=== PATIENT | male | born 1975 | race Caucasian/White ===

== ENCOUNTER 2018-09-04 15:43 | Outpatient (CLI) | payer BC, SELFPAY ==
[2018-09-04 18:33] LABS: ALT 68 U/L (12-78); AST 23 U/L (15-37); Albumin 4.2 g/dL (3.4-5.0); Alkaline Phosphatase 65 U/L (46-116); Bilirubin, Total 0.4 mg/dL (0.2-1.0); Total Protein 7.3 g/dL (6.4-8.2)
[2018-09-07 15:49] LABS: Adrenocorticotropic Hormone, P 14 pg/mL
[2018-09-07 21:01] LABS: Tissue Transglutaminase Ab IgA <1.2 U/mL
[2018-09-09 13:06] LABS: IGF-1, LC/MS, S 206 ng/mL (44-275); Z-score 1.28 SD
== END 2018-09-04 16:03 ==
PROVIDERS: PCP Emergency Medicine; Visit Provider Internal Medicine Endocrinology, Diabetes & Metabolism
DX: E11.649 Type 2 diabetes mellitus with hypoglycemia without coma (principal)
CPT/HCPCS: 36415; 80076; 82533; 82024; 83516; 84305

== ENCOUNTER 2019-06-01 15:20 | Outpatient (CLI) | payer BC, MEDICAID, SELFPAY ==
--- NOTE | 2019-06-01 10:36 | DI.RAD_ITS ---
EXAM: XR FOOT RT COMPLETE INDICATION: PAIN RT FOOT, M79.671. COMPARISON: No exams were available for comparison TECHNIQUE: 2D digital imaging was performed. FINDINGS: No fracture or bony erosions are seen. Vascular calcifications are noted. No mass is visible. IMPRESSION: No acute abnormality.
== END 2019-06-01 15:40 ==
PROVIDERS: PCP Emergency Medicine; Visit Provider Podiatrist Foot & Ankle Surgery
DX: M79.671 Pain in right foot (principal)
CPT/HCPCS: 73630

== ENCOUNTER 2019-06-04 12:33 | Outpatient (REF) | payer BC, MEDICAID, SELFPAY | END 2019-06-04 12:53 | LOC: LBN 12:33 | PROVIDERS: PCP Emergency Medicine; Visit Provider Surgery | DX: L03.031 Cellulitis of right toe (principal); E10.622 Type 1 diabetes mellitus with other skin ulcer; L98.499 Non-pressure chronic ulcer of skin of other sites with unspecified severity | CPT/HCPCS: 87070; 87205 ==

== ENCOUNTER 2019-06-11 12:45 | Outpatient (CLI) | payer BC, MEDICAID, SELFPAY ==
[2019-06-11 13:03] LABS: Abs Immature Grans 0.01 k/cumm (0.0-0.09); Absolute Basophil Count 0.02 k/cumm (0.0-0.2); Absolute Eosinophil Count 0.14 k/cumm (0.0-0.7); Absolute Lymphocyte Count 1.68 k/cumm (1.2-3.4); Absolute Monocyte Count 0.42 k/cumm (0.11-0.7); Absolute Neutrophil Count 3.33 k/cumm (1.2-6.7); Basophils % 0.4; Eosinophils % 2.5; HCT 41.6 % (40.0-50.0); HGB 14.3 g/dL (13.5-17.5); Immature Grans % 0.2 %; Mean Corp. HGB Concentration 34.4 g/dL (32.0-36.0); Mean Corpuscular Hemoglobin 28.5 pg (27.0-33.0); Monocytes % 7.5; Neutrophils % 59.4; Platelet Count 180 x1000/uL (130-400); RBC 5.01 m/cumm (4.50-6.00); RBC Distribution Width 12.7 % (11.8-14.1)
[2019-06-11 14:04] LABS: ALT 63 U/L (16-63); AST 25 U/L (15-37); Albumin 4.3 g/dL (3.4-5.0); Alkaline Phosphatase 80 U/L (46-116); Anion Gap 8.4 mmol/L (3-11); BUN 26 mg/dL (7-18); Bilirubin, Total 0.4 mg/dL (0.2-1.0); C-Reactive Protein 0.15 mg/dL (0.0-0.3); CO2 28.6 mmol/L (21.0-32.0); Calcium 9.2 mg/dL (8.5-10.1); Chloride 103 mmol/L (98-107); Glucose 158 mg/dL (74-106); Potassium 4.3 mmol/L (3.5-5.1); Sodium 140 mmol/L (136-145); Total Protein 7.7 g/dL (6.4-8.2)
== END 2019-06-11 13:05 ==
PROVIDERS: PCP Emergency Medicine; Visit Provider Surgery
DX: E10.621 Type 1 diabetes mellitus with foot ulcer; E11.3393 Type 2 diabetes mellitus with moderate nonproliferative diabetic retinopathy without macular edema, bilateral; L97.519 Non-pressure chronic ulcer of other part of right foot with unspecified severity; S81.809A Unspecified open wound, unspecified lower leg, initial encounter; L03.115 Cellulitis of right lower limb
CPT/HCPCS: 36415; 80053; 85025; 85610; 86140

== ENCOUNTER 2019-06-15 07:12 | Outpatient (CLI) | payer BC, MEDICAID, SELFPAY ==
[2019-06-15] MEDS: Normal Saline Flush 10 ML SYR IVP (11:35)
[2019-06-15] MEDS: Gadoterate meglumine 20 ML VIAL 18 ML IVP (11:36)
--- NOTE | 2019-06-15 12:15 | DI.MRI_ITS ---
EXAM: MR LOWER EXTREMITY RT WO/W CLINICAL HISTORY: suspect osteomylitis in toes, FOOT ULCER L97.509, CELLULITIS L03.90. TECHNIQUE: Multiplanar multisequence MRI was performed. COMPARISON: XR FOOT RT COMPLETE from 06/01/2019 FINDINGS: MR examination of the foot was performed according to the usual protocol with additional pre and post contrast T1 fat sat imaging. The region imaged includes the forefoot and portions of the midfoot. There is a nonspecific fluid collection of the tissues on the plantar aspect of head of 5th metatarsa l. No other significant fluid collection seen. There is abnormal bony signal of the distal phalange s of the 2nd and 3rd toes. There also appears to be mild enhancement in the distal phalanges of the 2nd and 3rd toes. Otherwise the bones of the forefoot show normal signal and no evidence of enhancem ent. No ligamentous or tendinous abnormality seen. Please correlate clinically regarding region of suspected osteomyelitis. IMPRESSION: Findings raising the possibility of osteomyelitis of the distal phalanges of the 2nd and 3rd toes whi ch show abnormal signal in the marrow and some post contrast enhancement. No gross bony destruction seen. Otherwise the bones show normal signal and no evidence of enhancement in the forefoot region.
== END 2019-06-15 07:32 ==
PROVIDERS: PCP Emergency Medicine; Visit Provider Surgery
DX: E10.621 Type 1 diabetes mellitus with foot ulcer (principal); L97.519 Non-pressure chronic ulcer of other part of right foot with unspecified severity; L03.115 Cellulitis of right lower limb; M89.8X7 Other specified disorders of bone, ankle and foot
CPT/HCPCS: 73720

== ENCOUNTER 2019-08-02 11:25 | Outpatient (CLI) | payer BC, SELFPAY ==
[2019-08-02 12:28] LABS: Abs Immature Grans 0.02 k/cumm (0.0-0.09); Absolute Basophil Count 0.02 k/cumm (0.0-0.2); Absolute Eosinophil Count 0.14 k/cumm (0.0-0.7); Absolute Lymphocyte Count 1.64 k/cumm (1.2-3.4); Absolute Monocyte Count 0.48 k/cumm (0.11-0.7); Absolute Neutrophil Count 2.97 k/cumm (1.2-6.7); Basophils % 0.4; Eosinophils % 2.7; HCT 40.8 % (40.0-50.0); HGB 14.3 g/dL (13.5-17.5); Immature Grans % 0.4 %; Lymphocytes % 31.1; Mean Corpuscular Hemoglobin 28.9 pg (27.0-33.0); Mean Corpuscular Volume 82.4 fL (80-95); Mean Platelet Volume 9.6 fL (8.0-11.0); Monocytes % 9.1; Neutrophils % 56.3; Platelet Count 181 x1000/uL (130-400); RBC 4.95 m/cumm (4.50-6.00); White Blood Cell Count 5.27 k/cumm (4.4-10.8)
[2019-08-02 13:33] LABS: ESR 13 mm/hr (0-15)
[2019-08-02 13:36] LABS: C-Reactive Protein 0.19 mg/dL (0.0-0.3)
== END 2019-08-02 11:45 ==
PROVIDERS: PCP Emergency Medicine; Visit Provider Podiatrist Foot & Ankle Surgery
DX: L03.90 Cellulitis, unspecified (principal)
CPT/HCPCS: 36415; 80048; 80061; 85652; 82175; 82300; 82607; 83036; 83655; 83825; 84165; 84443; 85025; 86038; 86140; 86592

== ENCOUNTER 2020-07-07 03:01 | Outpatient (CLI) | payer OTHER, MEDICAID, SELFPAY ==
--- NOTE | 2020-07-07 06:42 | DI.MRI_ITS ---
EXAM: MR LOWER EXTREMITY RT WO/W CLINICAL HISTORY: hx osteomyalitis of the same toes,RT FOOT PAIN, DIABETES,M79.671. TECHNIQUE: Multiplanar multisequence MRI was performed. COMPARISON: CR XR FOOT RT COMPLETE from 06/01/2019 MR MR LOWER EXTREMITY RT WO/W from 06/15/2019 FINDINGS: The exam is interpreted without benefit of recent plain films. The patient has undergone amputation of the 2nd and 3rd toes. Exam is also limited by motion artifact particularly at the level of the to es. There is deformity and apparent erosions at of the heads of the 2nd and 3rd metatarsals. The metatar sals had a normal appearance on the previous exam. There is abnormal contrast enhancement in the jairo e area. Metatarsal shafts appear normal. The 1st, 4th and 5th metatarsals as well as as 1st, 4th an d 5th toes appear normal. There is no drainable abscess or fluid collection. IMPRESSION: Findings consistent with osteomyelitis involving the 2nd and 3rd metatarsal heads. DATA REPOSITORY:
[2020-07-07 08:15] LABS: Anion Gap 6.2 mmol/L (3-11); BUN 17 mg/dL (7-18); C-Reactive Protein < 0.05 mg/dL (0.0-0.3); CO2 29.8 mmol/L (21.0-32.0); CREATININE 1.3 mg/dL (0.70-1.30); Calcium 8.9 mg/dL (8.5-10.1); Chloride 103 mmol/L (98-107); Glucose 226 mg/dL (74-106); Potassium 4.4 mmol/L (3.5-5.1); Sodium 139 mmol/L (136-145)
[2020-07-07] MEDS: Gadoterate meglumine 20 ML VIAL 19 ML IVP (08:27)
[2020-07-07] MEDS: Normal Saline Flush 10 ML SYR IVP (08:27)
[2020-07-07 18:37] LABS: ESR 6 mm/hr (<or=15)
== END 2020-07-07 03:02 ==
LOC: DI 03:01
PROVIDERS: PCP Emergency Medicine; Visit Provider Nurse Practitioner
DX: M79.671 Pain in right foot (principal); E11.9 Type 2 diabetes mellitus without complications; Z87.39 Personal history of other diseases of the musculoskeletal system and connective tissue
CPT/HCPCS: 80048; 85652; 73720; 86140

== ENCOUNTER 2020-07-07 12:09 | Observation (INO) | payer OTHER, MEDICAID, SELFPAY ==
[2020-07-07 12:19] VITALS: BP 140/80; PULSE 95; RESP 16; TEMP 36.5; O2SAT 100
--- NOTE | 2020-07-07 13:00 | ED.GENADUL_ITS ---
Discharge Plan Disposition Patient Disposition: [facility] INPATIENT Condition: Improving Discharge Details Clinical Impression: Osteomyelitis Primary Care Provider: Darnell Crowder ED Provider: Antoine Harrison Home Meds and New Rx's Prescriptions: No Action (DME) Dexcom G6 Transmitter Device See Rx Instructions .ROUTE .MEDSUPPLY Qty: 1 RF: 0 (DME) Dexcom G6 Sensor Device See Rx Instructions .ROUTE .MEDSUPPLY Qty: 3 RF: 0 (DME) Dexcom G6 Change Management Consultant Misc See Rx Instructions .ROUTE .MEDSUPPLY Qty: 1 RF: 0 (DME) lancets [FreeStyle Lancets] 1 EACH misc 1 ea Miscellaneous TID Qty: 300 RF: 4 omeprazole [Prilosec] 20 MG capsule,delayed release(DR/EC) 20 mg PO DAILY Qty: 90 RF: 6 (DME) Freestyle [employer] Test Strips 1 EACH strip 1 ea Miscellaneous TID Qty: 300 RF: 4 insulin lispro [Humalog KwikPen Insulin] 100 UNIT/1 ML insulin pen SQ sliding scale RF: 0 atorvastatin 10 mg tablet 10 mg PO DAILY Qty: 90 RF: 4 Trulicity 0.75 mg/0.5 mL pen injector 0.75 mg SC QWEEK Qty: 2 RF: 12 Jardiance 10 mg tablet 10 mg PO DAILY Qty: 90 RF: 3 ibuprofen 800 mg tablet 800 mg PO TID PRN (Reason: pain) Qty: 30 RF: 0 Medical Decision Making 45-year-old male diabetic presents from outpatient MRI. He has had a history of amputation of the second and third right toes due to osteomyelitis. He has follow-up with Dr. Zhang rivas at [facility]. He was referred for outpatient MRI given concern for recurrent osteomyelitis. The MRI today did show osteomyelitis involving the second and third metatarsal heads. Patient not had a fever, he is otherwise been well. He has previously followed with Dr. Pruett, who just has now retired. IV access established, screening blood work and blood cultures obtained. Vancomycin initiated. Given the findings on MRI will admit for parenteral antibiotics. HPI General Mode of arrival: ambulatory . Date/Time Provider Initiated Documentation: 07/07/20 12:11 . Limitations to Documentation: no limitations . Information obtained by: patient . History of Present Illness 45 year old M presents to the emergency department with the chief complaint of Osteomyelitis of right foot, Quality is described as dull and constant, and is localized to the right and lower extremity. Patient reports no radiation. Patient started experiencing this hour(s) and it has been intermittent. No relieving factors improve symptom(s), No exacerbating factors reported . Patient notes other (Foot pain); denies fever/chills. Patient did receive the following treatments prior to arrival, none Related Data Home Medications Medication Instructions Recorded Confirmed lancets [Freestyle Lancets] #300 ea 01/14/14 06/29/20 omeprazole [Prilosec] 20 mg PO DAILY #90 tab-cap 07/28/15 07/07/20 blood sugar diagnostic [Freestyle #300 strip 09/18/16 06/29/20 Insulinx Test Strips] insulin lispro [Humalog Syringe] SQ sliding scale 01/29/17 06/29/20 atorvastatin 10 mg tablet 10 mg PO DAILY #90 tab 05/23/20 07/07/20 dulaglutide 0.75 mg/0.5 mL 0.75 mg SC QWEEK #2 ml 05/23/20 07/07/20 subcutaneous pen injector empagliflozin 10 mg tablet 10 mg PO DAILY #90 tab 05/23/20 07/07/20 blood-glucose meter,continuous #1 ea 06/29/20 blood-glucose sensor #3 ea 06/29/20 blood-glucose transmitter #1 ea 06/29/20 ibuprofen 800 mg tablet 800 mg PO TID PRN #30 tab 07/05/20 07/07/20 Previous Rx's Medication Instructions Recorded atorvastatin 10 mg tablet 10 mg PO DAILY #90 tab 05/23/20 dulaglutide 0.75 mg/0.5 mL 0.75 mg SC QWEEK #2 ml 05/23/20 subcutaneous pen injector empagliflozin 10 mg tablet 10 mg PO DAILY #90 tab 05/23/20 ibuprofen 800 mg tablet 800 mg PO TID PRN #30 tab 07/05/20 Allergies Allergy/AdvReac Type Severity Reaction Status Date / Time prochlorperazine edisylate Allergy Severe SEVERE Verified 07/07/20 12:25 [From Compazine] AGITATION promethazine HCl AdvReac Severe irritabilit Verified 07/07/20 12:25 [From Phenergan] y-severe General Stated Complaint: Cellulitis GINA: 2 Review of Systems Narrative: No fever or chills. Pain at right foot. No recent antibiotics. 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 Diabetic ulcer of foot associated with type 1 diabetes mellitus, with muscle involvement without evidence of necrosis Non-healing wound of lower extremity Toe erythema LEFT 5th digit Surgical History Arthroplasty of knee (~1993) LEFT Open Carpal Tunnel release (~2000) LEFT Social History Smoking/Tobacco Use Status: Never Smoking risk assessment performed?: Yes Alcohol Intake: current Alcohol Intake frequency: holidays/special occasions only Drug use: Never Current gender identity: male Do you feel safe at home: Yes Do you feel safe in your relationship?: Yes Exam Narrative Exam Narrative: GEN: awake, alert, oriented 3. Pleasant, well groomed, interactive. HEAD: Normocephalic, atraumatic ENT: Mucous membranes moist, oropharynx unremarkable, External ear exam unremarkable EYES: PERRL, EOMI NECK: Full ROM, no NAKITA, no menigismus CHEST/RESP: Nontender, clear to auscultation bilateral, no wheeze/rhonchi/rales CARDIOVASCULAR: RRR, no murmur, rub gabriel. 2+ Rad pulse bilateral EXT: Full ROM, right foot with second and third toe amputations, well-healed surgical scars, tender at the distal second and third metatarsal heads. No overlying erythema Neuro: Grossly normal neurologic exam, conversant, interactive. Psych: Speech fluent, thoughts congruent, affect normal Course Vital Signs Vital signs: Vital Signs Temperature 36.5 C 07/07/20 12:19 Pulse 95 H 07/07/20 12:19 Respiratory Rate 16 07/07/20 12:19 Blood Pressure 140/80 07/07/20 12:19 Pulse Oximetry 100 07/07/20 12:19 Temperature 36.5 C 07/07/20 12:19 Temperature Source Temporal Artery Scan 07/07/20 12:19 Pulse 95 H 07/07/20 12:19 Respiratory Rate 16 07/07/20 12:19 Blood Pressure 140/80 07/07/20 12:19 Pulse Oximetry 100 07/07/20 12:19 Oxygen Delivery Method Room Air 07/07/20 12:19 Oxygen Flow Rate 0 07/07/20 12:19 Pain Level 3 07/07/20 12:19
[2020-07-07 13:17] LABS: Abs Immature Grans 0.02 10^3/uL (0.0-0.06); Absolute Basophil Count 0.02 10^3/uL (0.0-0.2); Absolute Eosinophil Count 0.16 10^3/uL (0.0-0.7); Absolute Lymphocyte Count 1.47 10^3/uL (1.2-3.4); Absolute Monocyte Count 0.41 10^3/uL (0.1-0.8); Absolute Neutrophil Count 4.09 10^3/uL (1.2-6.7); Basophils % 0.3; Eosinophils % 2.6; HCT 44.5 % (40.0-50.0); HGB 15.3 g/dL (13.5-17.5); Immature Grans % 0.3; Lymphocytes % 23.8; MCH 28.6 pg (27.0-33.0); MCHC 34.4 % (32.0-36.0); MCV 83.2 fL (80-95); Monocytes % 6.6; Neutrophils % 66.4; Nucleated RBC 0 %; Platelet Count 184 10^3/uL (130-400); RBC 5.35 10^6/uL (4.36-5.78); RDW 12.3 % (11.8-14.1); RDW-SD 37.2 fL; WBC 6.17 10^3/uL (4.4-10.8)
[2020-07-07 13:31] LABS: ALT 32 U/L (16-63); AST 16 U/L (15-37); Albumin 4.4 g/dL (3.4-5.0); Alkaline Phosphatase 74 U/L (46-116); Anion Gap 7.2 mmol/L (3-11); BUN 24 mg/dL (7-18); Bilirubin, Total 0.4 mg/dL (0.2-1.0); CO2 29.8 mmol/L (21.0-32.0); CREATININE 1.3 mg/dL (0.70-1.30); Calcium 8.9 mg/dL (8.5-10.1); Chloride 99 mmol/L (98-107); Glucose 368 mg/dL (74-106); Potassium 4.7 mmol/L (3.5-5.1); Sodium 136 mmol/L (136-145)
[2020-07-07 13:32] LABS: C-Reactive Protein < 0.05 mg/dL (0.0-0.3)
[2020-07-07] MEDS: VANCOMYCIN/WATER (PEG) 2 GM/400 ML BAG IVPB (13:33)
[2020-07-07] MEDS: Insulin REGULAR-Human 100 UNITS/ML UNIT 15 UNITS SC (14:41)
--- OUTSIDE RECORDS SUMMARY | 2020-07-07 15:08 | XMS_ITS ---
:1975 Author Care Team Providers Name Role Phone DR. JENNIFER GONCALVES Primary Care Provider [phone] DR. JENNIFER GONCALVES Referring Provider [phone] Allergies Code Code System Name Reaction Severity Status Onset 8704 RxNorm Prochlorperazine ? ? Active ? 8745 RxNorm Promethazine ? ? Active ? Medications Name Status Start Date Stop Date ? ? acetaminophen 300 mg-codeine 30 mg Completed ? 07/26/2019 tablet atorvastatin 10 mg tablet Active ? Not av ailable benzonatate 100 mg capsule Completed ? 05/24 TAKE 1-2 CAPSULES BY ORAL ROUTE 3 TIMES PER DAY NEEDED FOR C OUGH cephalexin 500 mg capsule Active ? Not av ailable cephalexin 500 mg tablet Completed ? 020 Take 1 tablet every 6 hours by oral route. cholecalciferol (vitamin D3) 1,250 mcg Active ? Not available (50,000 unit) capsule cholecalciferol (vitamin D3) 25 mcg (1,000 unit) capsule Complet ed ? 05/24/2019 Take 1 capsule every day by oral route. Freestyle Insu[employer]x Test Strips Active ? N ot available FreeStyle Lancets 28 gauge Active ? Not a vailable FreeStyle Blessing 14 Day Sensor kit Active ? Not available Humalog KwikPen (U-100) Insulin 100 Active ? Not available unit/mL subcutaneous Jardiance 10 mg tablet Active ? Not avail able mupirocin 2 % topical ointment Completed ? 0 07/26/2019 APPLY A SMALL AMOUNT TO THE AFFECTED AREA BY TOPICAL ROUTE 3 TI MES PER DAY omeprazole 20 mg capsule,delayed Active ? Not available release SSD 1 % topical cream Completed ? 07/26/2019 sulfamethoxazole 400 mg-trimethoprim 80 Completed ? 07/26/2019 mg tablet sulfamethoxazole 800 mg-trimethoprim Completed ? 07/26/2019 160 mg tablet tramadol 50 mg tablet Completed ? 07/26/2019 Trulicity 0.75 mg/0.5 mL subcutaneous Active ? Not available pen injector Problems Name Status Onset Date Source ? Type 2 Diabetes Mellitus Active ? ? Neuropathy Due to Diabetes Mellitus Active ? ? Cellulitis Active ? ? Gangrene of Foot Active ? ? Procedures Date Name Performed by ? 07/07/2019 Amputation, Toe at the Ip Joint Informat ion not available (Surg) ? Carpal Tunnel Surgery Information not av ailable Notes: 2000: Open Carpal Tunnel Relea se (Left). ? Arthroplasty of Knee Information not vicente ilable Notes: 1994: Left 05/31/2019 XR, Foot, 3 or More View Xray [facility] [address] [place], [place] [address] (Work Place) Results Lab Results Date Name Specimen Result Interpretation Description Value Range Status Address ? 08/02/2019 C-reactive ? No observation ? ? ? [facility], recorded. [facility] Quantitative [facility]: [address] [place] [address] 08/02/2019 ESR (Erythrocyte ? No observation ? ? ? [facility] recorded. [facility]), Blood [facility]: [address] [place] [address] 08/02/2019 CBC W/ Auto Diff ? No observation ? ? ? [facility] recorded. [facility]: [address] [place] [address] Past Encounters 08/09/2019 Avulsion of Toenail of Right Foot; Edema of Lower Extremity [facility]: [address] [place] [phone], Ph. 08/02/2019 Cellulitis; Peripheral Nerve Disease [facility]: [address] [place] [phone], Ph. 07/26/2019 History of Amputation of Foot [facility]: [address] [place] [phone], Ph. 07/19/2019 Gangrene of Toe of Right Foot [facility]: [address] [place] [phone], Ph. 07/12/2019 Gangrene of Toe of Right Foot [facility]: [address] [place] [phone], Ph. 06/24/2019 Osteomyelitis of Ankle AND/OR Foot [facility]: [address] [place] [phone], Ph. 06/17/2019 Frostbite of Foot [facility]: [address] [place] [phone], Ph. 06/15/2019 Frostbite of Foot [facility]: [address] [place] [phone], Ph. 05/31/2019 Pain in Right Foot; Swelling of Toe of R ight Foot; Gangrene of Toe of Right Foot; Pain of Toe of Right Foot [facility]: [address] [place] [phone], Ph. 05/24/2019 Gangrene of Toe of Right Foot [facility]: [address] [place] [phone], Ph. Social History Tobacco Smoking Status Never Smoker Vaccine List None recorded. Plan of Care Patient Instructions Elevate the foot when possible bing tor the fifth toe for any change in drainage. Will have him cleanse that area and appl y bandage with topical antibiotic. Return to foot wear as tolerated. R eturn if anything untoward occurs. Postop shoe Have him continue with the dressing s and if there is any increasing pain swelling drainage or fever chills or emanuel sea he should certainly ask for assistance.We will plan plan to see him in about 2 wee ks. Redressed the foot daily with Rm dene and gauze. Continue with Silvadene dressings a nd postop shoe Warm water soaks twice a day for 10 minutes with dish soap pat the area dry. Apply Silvadene cream to the affected to es. Apply gauze dressings after application of Silvadene. Keep the feet warm and dry. Use the surgical shoe when ambulating to reduce the extension of the toes. Return in 1 week Reminders Provider Appointments None recorded. ? ? Lab None recorded. ? ? Referral None recorded. ? ? Procedures None recorded. ? ? Surgeries None recorded. ? ? Imaging None recorded. ? ? Vitals 08/09/2019 12:45PM PODIATRY ACUTE Height Weight BMI Blood Pressure 180.34 cm 90.72 kg 27.9 kg/m2 128/84 mm[Hg] 08/02/2019 09:45AM PODIATRY ACUTE Height Weight BMI Blood Pressure 180.34 cm 90.72 kg 27.9 kg/m2 130/88 mm[Hg] 07/26/2019 04:30PM FOLLOW UP Height Weight BMI Blood Pressure 180.34 cm 90.72 kg 27.9 kg/m2 118/72 mm[Hg] 07/19/2019 02:15PM FOLLOW UP Height Weight BMI Blood Pressure 180.34 cm 88.45 kg 27.2 kg/m2 124/68 mm[Hg] 07/12/2019 02:30PM PODIATRY POST-OP 1 Height Weight BMI Blood Pressure 180.34 cm 88.45 kg 27.2 kg/m2 128/70 mm[Hg] 06/24/2019 10:15AM FOLLOW UP Height Weight BMI Blood Pressure 180.34 cm 88.45 kg 27.2 kg/m2 132/84 mm[Hg] 06/17/2019 09:00AM FOLLOW UP Height Weight BMI Blood Pressure 180.34 cm 88.45 kg 27.2 kg/m2 140/88 mm[Hg] 06/15/2019 04:30PM FOLLOW UP Height Weight BMI Blood Pressure 180.34 cm 88.45 kg 27.2 kg/m2 122/62 mm[Hg] 05/31/2019 04:30PM FOLLOW UP Height Weight BMI Blood Pressure 180.34 cm 88.45 kg 27.2 kg/m2 112/62 mm[Hg] 05/24/2019 04:00PM NEW PATIENT Height Weight BMI Blood Pressure 180.34 cm 88.45 kg 27.2 kg/m2 106/60 mm[Hg]
[2020-07-07 15:30] VITALS: BP 138/89; PULSE 89; RESP 18; TEMP 36.4; O2SAT 96
[2020-07-07] MEDS: Normal Saline Flush 10 ML SYR IVP (16:04)
[2020-07-07] MEDS: Heparin 5,000 UNITS/ML VIAL 5000 UNITS SC ×2 (16:38→23:46)
[2020-07-07 16:40] VITALS: BP 138/89; PULSE 89; RESP 18; TEMP 36.4; O2SAT 96
--- NOTE | 2020-07-07 17:18 | HPE_ITS ---
Date of service: 07/07/20 Time of Service: 17:26 Assessment and Plan Assessment and plan (1) Osteomyelitis: Start date: 07/07/20 Start time: 17:51 Status: Acute Assessment and plan: Right 2nd and 3rd toe amputation in 2020, presents today with osteomylitis of metatarsal of the head. He received vanco in the ED. He is afebrile. Labs unremarkable. Inflammatory markers normal, Podiatry consulted, will hold off on antbx at this time until Dr. Lee evaluates patient Blood cutlures pending. 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 He does state he has problems with hypoglycemia often, will do SSI sensitive and monitor fingersticks, He does have CGM Diabetic diet (3) Diabetic neuropathy: Start date: 07/07/20 Start time: 17:54 Status: Acute Assessment and plan: He has neuropathy bilaterally, however he is having pain to his 2nd and third metatarsal which is why he presented for MRI. Will order toradol for pain, nucynta prn and gabapentin TID as he is not on any type of neuropathy medication. (4) DVT prophylaxis: Start date: 07/07/20 Start time: 17:56 Status: Acute Assessment and plan: Heparin subcu above case discussed with Dr. Schmidt who is in agreement. History of Present Illness History of Present Illness Chief Complaint: osteomylitis Narrative: 45 y.o male with PMH of DM 2 on insulin, HLD, with s/p amputation of 2 and 3 right toe amputation of right foot. Presented to [facility] after having an outpatient MRI revealing osteomylitis of 2nd and 3rd metatarsal heads. In the ED labs are unremarkable. Glucose is elevated. CRP less than 0.5. He did receive a dose of vanco. He has severe neuropathy in his feet, however pain did prompt him to seek care to his right foot. He does have a pinpoint open area to the head of metatarsals which is likely the portal of entry. He is afebrile. No leukocytosis. Dr. Lee consulted. He received vanco in the ED. We will hold antibiotics at this time until Dr. Lee evaluates him and does possible bone biopsy. Blood cultures pending. He denies CP, SOB, N/V/D. 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 Diabetic ulcer of foot associated with type 1 diabetes mellitus, with muscle involvement without evidence of necrosis Non-healing wound of lower extremity Toe erythema LEFT 5th digit Surgical History Arthroplasty of knee (~1993) LEFT Open Carpal Tunnel release (~2000) LEFT Social History Smoking/Tobacco Use Status: Never Smoking risk assessment performed?: Yes Alcohol Intake: current Alcohol Intake frequency: holidays/special occasions only Drug use: Never Current gender identity: male Do you feel safe at home: Yes Do you feel safe in your relationship?: Yes Meds Home Medications and Allergies Home Medications Medication Instructions Recorded Confirmed Type lancets [Freestyle Lancets] #300 ea 01/14/14 06/29/20 History omeprazole [Prilosec] 20 mg PO DAILY #90 tab-cap 07/28/15 07/07/20 History blood sugar diagnostic [Freestyle #300 strip 09/18/16 06/29/20 History Insulinx Test Strips] insulin lispro [Humalog Syringe] SQ sliding scale 01/29/17 06/29/20 History atorvastatin 10 mg tablet 10 mg PO DAILY #90 tab 05/23/20 07/07/20 Rx dulaglutide 0.75 mg/0.5 mL 0.75 mg SC QWEEK #2 ml 05/23/20 07/07/20 Rx subcutaneous pen injector empagliflozin 10 mg tablet 10 mg PO DAILY #90 tab 05/23/20 07/07/20 Rx blood-glucose meter,continuous #1 ea 06/29/20 History blood-glucose sensor #3 ea 06/29/20 History blood-glucose transmitter #1 ea 06/29/20 History ibuprofen 800 mg tablet 800 mg PO TID PRN #30 tab 07/05/20 07/07/20 Rx Allergies Allergy/AdvReac Type Severity Reaction Status Date / Time prochlorperazine edisylate Allergy Severe SEVERE Verified 07/07/20 12:25 [From Compazine] AGITATION promethazine HCl AdvReac Severe irritabilit Verified 07/07/20 12:25 [From Phenergan] y-severe Exam Const General: cooperative, healthy appearing, comfortable and no acute distress Nutritional Appearance: average body habitus Orientation: alert, awake and oriented x3 HENMT Head: normal to inspection, no palpable skull fracture, normocephalic and atraumatic Mouth: moist mucous membranes Eyes Pupils: PERRL EOM: EOM intact bilaterally Neck Neck: normal visual inspection and full ROM Thyroid: thyroid normal Lymphatic: no lymphadenopathy noted and no lymphedema noted Chest Chest: normal inspection of the chest Resp Effort & Inspection: normal respiratory effort and able to speak in complete sentences Auscultation: clear to auscultation bilaterally Cardio Jugular venous pressure: no JVD Heart Sounds: S1 normal and S2 normal GI Inspection: normal to inspection Palpation: soft and no hepatosplenomegaly Auscultation: normal bowel sounds General: deferred Back/Spine/Pelvis Back: no CVA tenderness Thoracic/Lumbar Spine: thoracic and lumbar spine normal to inspection Skin Trauma: other Wounds: wounds noted (small ball point pen opening to metatarsal wound likely port of entry) Neuro General: patient alert, patient awake and patient oriented x3 Cognition: normal cognition Speech: speech normal Extrem General: normal to inspection, full ROM and no clubbing, cyanosis or edema Psych Appearance: grossly normal Affect: normal affect Attitude: cooperative Results Labs Result diagrams: 07/07/20 12:35 07/07/20 12:35 Labs: Laboratory Results - last 24 hr 07/07/20 07/07/20 12:35 12:35 WBC 6.17 RBC 5.35 Hgb 15.3 Hct 44.5 MCV 83.2 MCH 28.6 MCHC 34.4 RDW 12.3 Plt Count 184 MPV 10.0 Immature Gran % 0.3 Neutrophils % 66.4 Lymphocytes % 23.8 Monocytes % 6.6 Eosinophils % 2.6 Basophils % 0.3 Nucleated RBC % 0 Absolute Neutrophils 4.09 Absolute Lymphocytes 1.47 Absolute Monocytes 0.41 Absolute Eosinophils 0.16 Absolute Basophils 0.02 Sodium 136 Potassium 4.7 Chloride 99 Carbon Dioxide 29.8 Anion Gap 7.2 BUN 24 H Creatinine 1.3 Estimated GFR/1.73 m2 >= 60.00 Glucose 368 H D Calcium 8.9 Total Bilirubin 0.4 AST 16 ALT 32 Alkaline Phosphatase 74 C-Reactive Protein < 0.05 Total Protein 8.0 Albumin 4.4 Last Vital Signs Temp 36.4 C L 07/07/20 16:40 Pulse 89 07/07/20 16:40 Resp 18 07/07/20 16:40 BP 138/89 07/07/20 16:40 Pulse Ox 96 07/07/20 16:40 COVID-19 Screening Have you, or household traveled for leisure in last 14 days?: No Had IN PERSON contact w/suspected or confirmed C-19 person: No
[2020-07-07] MEDS: Insulin Aspart 300 UNITS/3 ML PEN SC (17:44)
[2020-07-07 19:39] VITALS: BP 122/80; PULSE 84; RESP 20; TEMP 36.9; O2SAT 97
[2020-07-07 23:21] VITALS: BP 125/81; PULSE 81; RESP 20; TEMP 36.7; O2SAT 96
[2020-07-08 04:05] VITALS: BP 117/99; PULSE 92; RESP 17; TEMP 35.3; O2SAT 98
[2020-07-08 07:08] LABS: Abs Immature Grans 0.02 10^3/uL (0.0-0.06); Absolute Basophil Count 0.02 10^3/uL (0.0-0.2); Absolute Eosinophil Count 0.22 10^3/uL (0.0-0.7); Absolute Lymphocyte Count 1.58 10^3/uL (1.2-3.4); Absolute Neutrophil Count 2.59 10^3/uL (1.2-6.7); Basophils % 0.4; Eosinophils % 4.6; HCT 40.1 % (40.0-50.0); HGB 13.9 g/dL (13.5-17.5); Immature Grans % 0.4; Lymphocytes % 32.7; MCH 28.8 pg (27.0-33.0); MCHC 34.7 % (32.0-36.0); Monocytes % 8.3; Neutrophils % 53.6; Nucleated RBC 0 %; Platelet Count 143 10^3/uL (130-400); RBC 4.83 10^6/uL (4.36-5.78); RDW-SD 36.3 fL; WBC 4.83 10^3/uL (4.4-10.8)
[2020-07-08 07:19] LABS: Anion Gap 7.6 mmol/L (3-11); BUN 19 mg/dL (7-18); CO2 26.4 mmol/L (21.0-32.0); CREATININE 1.1 mg/dL (0.70-1.30); Calcium 8.8 mg/dL (8.5-10.1); Chloride 106 mmol/L (98-107); Glucose 148 mg/dL (74-106); Magnesium 2.1 mg/dL (1.8-2.4); Potassium 4.3 mmol/L (3.5-5.1); Sodium 140 mmol/L (136-145)
[2020-07-08 07:43] VITALS: BP 125/81; PULSE 87; RESP 19; TEMP 36.5; O2SAT 97
[2020-07-08] MEDS: Atorvastatin 10 MG TAB PO (08:09)
[2020-07-08] MEDS: Omeprazole 20 MG CAPCR PO (08:09)
[2020-07-08] MEDS: Insulin Aspart 300 UNITS/3 ML PEN SC ×2 (08:10→12:27)
[2020-07-08] MEDS: Normal Saline Flush 10 ML SYR IVP (08:14)
[2020-07-08] MEDS: Heparin 5,000 UNITS/ML VIAL 5000 UNITS SC (08:19)
--- NOTE | 2020-07-08 10:53 | W.PODCONSULT ---
Date of service: 07/08/20 Time of Service: 10:53 History of Present Illness History of Present Illness Chief Complaint: Osteomyelitis second and third metatarsals right foot Narrative: 45-year-old white male with type 2 diabetes who has been experiencing increasing pain in his right forefoot over the last few weeks. He was seen by his PCP where an MRI was ordered which indicated findings consistent with osteomyelitis of the second and third metatarsals of the right foot. He was admitted through the emergency room for ongoing management. He underwent previous amputation of the second and third right toes back in 2019 for gangrene with osteomyelitis. 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 Displacement of lumbar intervertebral disc without myelopathy Encephalopathy acute (03/23/14) due to recurrent profound hypoglycemia Femoroacetabular impingement of left hip (07/23/17) Mild nonproliferative diabetic retinopathy (05/06/14) [facility]; MILD NPDR-kb Moderate nonproliferative diabetic retinopathy of both eyes (03/21/16) [facility], 06/25/16 Non-healing wound of lower extremity Toe erythema LEFT 5th digit Type II diabetes mellitus with neurological manifestations (05/06/13) Surgical History Arthroplasty of knee (~1993) LEFT History of arthroscopy of knee Open Carpal Tunnel release (~2000) LEFT Status post carpal tunnel release Social History Smoking/Tobacco Use Status: Never Smoking risk assessment performed?: Yes Alcohol Intake: current Alcohol Intake frequency: holidays/special occasions only Drug use: Never Current gender identity: male Do you feel safe at home: Yes Do you feel safe in your relationship?: Yes Exam Narrative Exam Narrative: Kuldeep is awake, alert responds appropriately to questions and asks appropriate follow-up. Head is normocephalic Eyes PERRLA Hearing is adequate He denies any chest discomfort, regular rate and rhythm noted Lung zafar were clear Abdomen was nontender, bowel sounds appreciated Peripheral pulses at the ankle easily palpable and graded 2 out of 4. No peripheral edema or is noted. Both feet are warm to the touch. Surgical absence of the right second and third toe at the MPJ level noted. A small pinhole is appreciated the most distal dorsal aspect of the skin between the second and third metatarsals. There is no active drainage that I can express but this is most likely where bacterial invasion has occurred. It is also conceivable that he has a reactivation of his previous osteomyelitis in these infected bones. Muscle groups are 5 out of 5 bilaterally Neurologically he is densely neuropathic. MRI studies indicate osteomyelitis in the head regions of the second and third metatarsals on the right foot. Lab work was grossly benign at this time he did have 1 dose of vancomycin in the emergency room Impressions: Osteomyelitis right second and third metatarsal heads right foot Type II diabetic with dense neuropathy and microvascular disease Plan: I explained to Mr. Ham that we need to get tissue for microbiologic exam so we know what organisms are causing his osteomyelitis to afford appropriate antibiotic management. I am recommending that we go in as soon as possible, excise the sinus tract, remove diseased bone from the second and third metatarsals and obtain cultures. Risk and complications were discussed including the potential for ongoing pain, scarring, infection, requiring more proximal debridement. Revisional type procedures may be required depending on outcome. All questions were answered in detail. He agrees to proceed. No promises made to final outcome of procedures. Results Last Vital Signs Temp 36.5 C 07/08/20 07:43 Pulse 87 07/08/20 07:43 Resp 19 07/08/20 07:43 BP 125/81 07/08/20 07:43 Pulse Ox 97 07/08/20 07:43 Labs Result diagrams: 07/08/20 06:25 07/08/20 06:25 Labs: Laboratory Results - last 24 hr 07/07/20 07/07/20 07/08/20 12:35 12:35 06:25 WBC 6.17 RBC 5.35 Hgb 15.3 Hct 44.5 MCV 83.2 MCH 28.6 MCHC 34.4 RDW 12.3 Plt Count 184 MPV 10.0 Immature Gran % 0.3 Neutrophils % 66.4 Lymphocytes % 23.8 Monocytes % 6.6 Eosinophils % 2.6 Basophils % 0.3 Nucleated RBC % 0 Absolute Neutrophils 4.09 Absolute Lymphocytes 1.47 Absolute Monocytes 0.41 Absolute Eosinophils 0.16 Absolute Basophils 0.02 Sodium 136 140 Potassium 4.7 4.3 Chloride 99 106 Carbon Dioxide 29.8 26.4 Anion Gap 7.2 7.6 BUN 24 H 19 H Creatinine 1.3 1.1 Estimated GFR/1.73 m2 >= 60.00 >= 60.00 Glucose 368 H D 148 H D Calcium 8.9 8.8 Magnesium 2.1 Total Bilirubin 0.4 AST 16 ALT 32 Alkaline Phosphatase 74 C-Reactive Protein < 0.05 Total Protein 8.0 Albumin 4.4 07/08/20 06:25 WBC 4.83 RBC 4.83 Hgb 13.9 Hct 40.1 MCV 83.0 MCH 28.8 MCHC 34.7 RDW 12.0 Plt Count 143 MPV 10.0 Immature Gran % 0.4 Neutrophils % 53.6 Lymphocytes % 32.7 Monocytes % 8.3 Eosinophils % 4.6 Basophils % 0.4 Nucleated RBC % 0 Absolute Neutrophils 2.59 Absolute Lymphocytes 1.58 Absolute Monocytes 0.40 Absolute Eosinophils 0.22 Absolute Basophils 0.02 Sodium Potassium Chloride Carbon Dioxide Anion Gap BUN Creatinine Estimated GFR/1.73 m2 Glucose Calcium Magnesium Total Bilirubin AST ALT Alkaline Phosphatase C-Reactive Protein Total Protein Albumin
[2020-07-08 11:31] VITALS: BP 113/78; PULSE 84; RESP 19; TEMP 35.8; O2SAT 95
--- NOTE | 2020-07-08 13:01 | PDOC.CMIN ---
- If Service Date Differs Date of service: 07/08/20 Time of Service: 14:43 Care Management Initial Assess REASON FOR HOSPITALIZATION:: Osteomyelitis 2nd and 3rd metatarsal heads by MRI PAST MEDICAL HISTORY/PAST SURGICAL HISTORY:: DVT prophylaxis, osteomyelitis, diabetic toe ulcer in type 1 DM, diabetic neuropathy PREVIOUS FUNCTIONAL STATUS/SOCIAL/FAMILY SUPPORTS:: Kuldeep resides in [place], [place]. He is independent at baseline in the community. CURRENT FUNCTIONAL STATUS:: Kuldeep is being brought to the OR for metatarsal amputation with Dr. Lee. CM met with Dr. Lee and called out to [facility] in [facility] to secure oral antibiotic prescription for Kuldeep verbally to ensure insurance coverage. Dr. Lee ordered 600mg linezolid BID for 6 wks (84 pills). 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 CM called [facility] and Dr. Lee ordered release of four pills to cover Kuldeep until Friday afternoon. MD reports Kuldeep will likely discharge to home this evening post surgically. ADVANCE DIRECTIVES:: None on file at [facility]. Has patient been provided with info about the portal/API?: Yes Did the patient sign up for the portal?: Yes (Previously) CODE STATUS:: Full Code INSURANCE COVERAGE / FINANCIAL ISSUES:: C-only partial coverage for prescription. Medicaid -per pharmacist no secondary coverage for prescription ordered CURRENT HOME/COMMUNITY SERVICES/EQUIPMENT:: CGM dexcom glucose reader PRIMARY CARE PHYSICIAN:: Darnell Crowder DO-[facility] POTENTIAL DISCHARGE NEEDS:: Presciption support, PCP follow up, further support in securing full prescription-Dr. Lee reports this will be attended to on an outpatient basis. PATIENT/FAMILY EDUCATION NEEDS:: Review discharge instructions, discuss Ask Me Three. ANTICIPATED BARRIERS TO DISCHARGE:: None identified. TRANSPORTATION:: Via private vehicle with natural support. PLAN:: Kuldeep will return home when ready per MD. He will follow up with Dr. Lee, his PCP and plan of care as prescribed. He will retrieve his partial prescription on Friday at [facility] in [place], [place]. He will transport via private vehicle with family or a friend.
--- NOTE | 2020-07-08 13:40 | BONE_PTH ---
PATIENT: Kuldeep Ham JR LOC: U#:[id number] AGE/SX: 45/M ROOM: 210 RE07/07/[address]: Jennifer Schmidt : 1975 BED: A DIS: 07/08/2020 SPEC #: [id number] RECD: 07/10/20 12:44 STATUS: DILLON REQ #: [id number] BARB: 07/08/20 13:[address]: Jennifer Schmidt DEPT: Surgical Specimen RECD BY: Roopa Castillo ENTERED: 07/10/20 12:45 SP TYPE: Bone OTHR DR: Darnell Crowder DO Tissues: 1 - BONE BX/CURRETTE NOT PATH FRACTURE 2 - BONE BX/CURRETTE NOT PATH FRACTURE Procedures: GROSS AND MICRO LEVEL 3 DECALCIFICATION Comments: [id number]
--- NOTE | 2020-07-08 14:17 | W.PM.OP ---
Date of service: 07/08/20 Time of Service: 14:17 Operative Note Operative Note DATE OF PROCEDURE: 07/08/20 PRE-OP DIAGNOSIS: osteomyelitis 2 and 3 metatarsal right foot POST-OP DIAGNOSIS: same PROCEDURE: debridement right foot with removal 2nd and 3rd metatarsal heads SURGEON: Meek Lee ANESTHESIA: local ESTIMATED BLOOD LOSS: 3 PATHOLOGY: other TOURNIQUET TIME: 0 COMPLICATIONS: None Patient was transported to: no change Patient's condition: stable Implants: stimulan antibiotic beads with vancomycin Indications: 45 yo male with clinical findings of osteomyelitis 2nd and 3rd metatarsal heads, right foot. He is being brought to the OR for debridement of the right foot, resection of the 2nd and 3rd metatarsal heads. He understands the potential risks and complications pretaining to pain, scarring, infection, persistent infection requiring revision surgery. Procedure Description: Kuldeep was brought into the surgical suite. The right foot anesthesized with 15cc of 1% Lidocaine plain, 1% Lidocaine with epi and 0.5% Marcaine plain in equal parts. Time out performed for safe surgery. Attention was directed tor the right foot. a 3cm incision was made ending at the thick skin edge between the 2nd and 3rd metatarsals. The sinus tract was excised. Hemostasis was acquired with electrocautery. Dissection carried down to the 3rd Metatarsal head, the periostieum opened and the head delivered into surgical site. Nio purulence noted. The head was resected at its surgical neck. All mando edges rasped smooth.. Copious irrigation performed. The identical maneuver was then performed to remove the 2nd metatarsal head without addiotion or deletion. Both bones were sent to pathology and microbiology for culture and analysis. Stimulan beads with vancomycin was then placed intoo the wound. The deep layers were closed with 3-o Vicryl and the skin closed with 4-0 Nylon. Xeroform, fluff, Kerlix rolls, stockinette and jayjay wrap applied. Kuldeep left the OR with VSS, sharps and sponge counts correct.
[2020-07-08 14:21] VITALS: BP 117/79; PULSE 85; RESP 16; TEMP 36.8; O2SAT 99
[2020-07-08] MEDS: Ciprofloxacin 500 MG TAB PO (14:37)
[2020-07-08] MEDS: Linezolid 600 MG TAB PO (14:37)
[2020-07-08] MEDS: Lidocaine 1% Multi-Dose 50 ML VIAL (15:24)
[2020-07-08] MEDS: Bupivacaine 0.5% Pres-Free 30 ML VIAL (15:24)
[2020-07-09 15:27] LABS: COVID-19 RT-PCR UVMMC Result Negative (Negative)
--- NOTE | 2020-07-11 15:30 | W.PM.DS.N ---
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 His previous care had been at [facility] in [facility] under the care of Dr. Jose Elias Thompson in June 2019. Dr. Thompson has since retired. The patient had outpatient MRI which was ordered by his PCP, Marva Goss due to complaints of right foot pain. When the MRI showed osteomyelitis of the right second and third metatarsal heads he was referred to the emergency department. He had no fevers and no signs of sepsis or systemic infection but nevertheless was admitted overnight. Blood cultures were obtained and so far have shown no growth. CBC and CMP were unremarkable. Surprisingly his CRP was less than 0.05. Overnight he has had no further changes clinical condition. Dr. Meek Lee, playground supervisor, was consulted and the patient underwent debridement of the right foot with removal of the second and third metatarsal heads. This was performed this afternoon. Dr. Lee implanted antibiotic beads with vancomycin. Dr. Lee and I discussed his case and because the patient is not showing any signs of systemic infection and the patient would like to return home it was felt that it was reasonable to put him on combination oral antibiotic therapy with Zyvox and ciprofloxacin pending the results of the bone cultures. Dr. Lee indicated that he will follow up with the patient on Friday which will be in 3 days and hopefully by then he will have culture results. Home Meds and New Rx's Prescriptions: New ciprofloxacin HCl 500 mg tablet 500 mg PO BID Qty: 20 RF: 0 linezolid [Zyvox] 600 mg tablet 600 mg PO BID Qty: 20 RF: 0 Continued (DME) Dexcom G6 Transmitter Device See Rx Instructions .ROUTE .MEDSUPPLY Qty: 1 RF: 0 (DME) Dexcom G6 Sensor Device See Rx Instructions .ROUTE .MEDSUPPLY Qty: 3 RF: 0 (DME) Dexcom G6 Switchgear Repairer Misc See Rx Instructions .ROUTE .MEDSUPPLY Qty: 1 RF: 0 (DME) lancets [FreeStyle Lancets] 1 EACH misc 1 ea Miscellaneous TID Qty: 300 RF: 4 omeprazole [Prilosec] 20 MG capsule,delayed release(DR/EC) 20 mg PO DAILY Qty: 90 RF: 6 (DME) Freestyle [employer] Test Strips 1 EACH strip 1 ea Miscellaneous TID Qty: 300 RF: 4 insulin lispro [Humalog KwikPen Insulin] 100 UNIT/1 ML insulin pen SQ sliding scale RF: 0 atorvastatin 10 mg tablet 10 mg PO DAILY Qty: 90 RF: 4 Trulicity 0.75 mg/0.5 mL pen injector 0.75 mg SC QWEEK Qty: 2 RF: 12 Jardiance 10 mg tablet 10 mg PO DAILY Qty: 90 RF: 3 ibuprofen 800 mg tablet 800 mg PO TID PRN (Reason: pain) Qty: 30 RF: 0 Discharge Instructions Instructions: Osteomyelitis (DC), Foot Care for People with Diabetes (DC), Diabetic Foot Ulcers (DC) Additional Instructions: Follow Dr. Lee's wound instructions for care of your foot and follow-up with him on Friday, July 11, 2020. Take your antibiotics as prescribed by pharmacy. If you have any fevers or shaking chills or nausea or vomiting return to the emergency department. If the wound opens up or is draining pus you should also return to the emergency department. Stand Alone Forms: Nursing Discharge Form Referrals: Corazon Goss NP [NURSE PRACTITIONER] - (call the office for follow up appointment) Meek Lee DPM [[facility] STAFF PHYSICIAN] - 07/11/20 Activity:: Activity as Tolerated Equipment/Supplies:: No Equipment Needed Diet:: Carb Counting Discharge Orders Discharge Orders: Discharge Order (Routine); Ordered 07/08/20 Ordered By: Jonathon Herrera Discharge Data Discharge Date/Time-TO BE ENTERED AT DEPARTURE: 07/08/20 16:45 DS: Summary Time Spent with Patient providing and/or coordinating discharge services: Less than 30 minutes Status at Discharge Functional status at discharge: independent ambulation Overall status at discharge: patient is progressing back to baseline Mental Status: mental status grossly normal Speech and Movement: speech and movement normal Mood: congruent mood Affect: normal affect Exam Psych Mental Status: mental status grossly normal Speech and Movement: speech and movement normal Mood: congruent mood Affect: normal affect DS: Data Vitals/I&O Vitals and I&O: Vital Signs Temperature 36.8 C 07/08/20 14:21 Temperature Source Tympanic 07/08/20 14:21 Pulse 85 07/08/20 14:21 Pulse Rhythm Regular 07/08/20 16:00 Respiratory Rate 16 07/08/20 14:21 Respiratory Effort 07/08/20 16:00 Respiratory Depth Normal 07/08/20 16:00 Respiratory Pattern Normal 07/08/20 16:00 Blood Pressure 117/79 07/08/20 14:21 Pulse Oximetry 99 07/08/20 14:21 Oxygen Delivery Method Room Air 07/08/20 14:21 Oxygen Flow Rate 0 07/08/20 14:21 Pain Level 1 07/08/20 14:21 Comment 07/08/20 14:21 Data Completed and Pending Labs on day of discharge: Preliminary micro results at discharge 07/07/20 12:35 Blood Culture - Preliminary Blood NO GROWTH 96 HOURS 07/07/20 13:30 Blood Culture - Preliminary Blood NO GROWTH 72 HOURS 07/08/20 13:40 Surgical Culture - Preliminary Toe - Right Third Digit 07/08/20 13:40 Anaerobic Culture - Preliminary Toe - Right Third Digit 07/08/20 13:40 Anaerobic Culture - Preliminary Toe - Right Second Digit 07/08/20 13:40 Surgical Culture - Preliminary Toe - Right Second Digit [facility] Medical History Bronchitis likely viral with some bronchospasm Cellulitis Diabetic foot ulcer associated with diabetes mellitus due to underlying condition Diabetic toe ulcer in type 1 diabetes mellitus Displacement of lumbar intervertebral disc without myelopathy Encephalopathy acute (03/23/14) due to recurrent profound hypoglycemia Femoroacetabular impingement of left hip (07/23/17) Mild nonproliferative diabetic retinopathy (05/06/14) [facility]; MILD NPDR-kb Moderate nonproliferative diabetic retinopathy of both eyes (03/21/16) [facility], 06/25/16 Non-healing wound of lower extremity Toe erythema LEFT 5th digit Type II diabetes mellitus with neurological manifestations (05/06/13) Surgical History Arthroplasty of knee (~1993) LEFT History of arthroscopy of knee Open Carpal Tunnel release (~2000) LEFT Status post carpal tunnel release Social History Smoking/Tobacco Use Status: Never Smoking risk assessment performed?: Yes Alcohol Intake: current Alcohol Intake frequency: holidays/special occasions only Drug use: Never Current gender identity: male Do you feel safe at home: Yes Do you feel safe in your relationship?: Yes
== END 2020-07-08 16:45 | disposition home or self-care (01) | DRG 504 ==
LOC: ER 14:11 → MS 07-08 14:55
PROVIDERS: Podiatrist; Admitting Provider Internal Medicine; Emergency Provider Emergency Medicine; PCP Emergency Medicine; Visit Provider Internal Medicine
PROC: 0QBN0ZZ Excision of Right Metatarsal, Open Approach (ICD-10-PCS; CPT 28288; principal; 2020-07-08 11:55)
PROC: 0QBN0ZZ Excision of Right Metatarsal, Open Approach (ICD-10-PCS; CPT 28288; 2020-07-08 11:55)
DX: M86.8X7 Other osteomyelitis, ankle and foot (principal); L97.515 Non-pressure chronic ulcer of other part of right foot with muscle involvement without evidence of necrosis; E78.5 Hyperlipidemia, unspecified; E11.621 Type 2 diabetes mellitus with foot ulcer; E11.42 Type 2 diabetes mellitus with diabetic polyneuropathy; E11.51 Type 2 diabetes mellitus with diabetic peripheral angiopathy without gangrene; Z20.828 Contact with and (suspected) exposure to other viral communicable diseases
CPT/HCPCS: 28288 ×2; 36415; 36416; 80048; 80053; 82962; 87040; 87077; 90686; 96365; 99223; 99238; 99285; U0003; 83735; 85025; 86140; 87070; 87075; 87186; 87205; 88304; 88311; J1644

== ENCOUNTER 2020-08-01 03:35 | Outpatient (CLI) | payer OTHER, MEDICAID, SELFPAY ==
[2020-08-01 16:59] LABS: Abs Immature Grans 0.01 10^3/uL (0.0-0.06); Absolute Basophil Count 0.02 10^3/uL (0.0-0.2); Absolute Eosinophil Count 0.21 10^3/uL (0.0-0.7); Absolute Lymphocyte Count 1.85 10^3/uL (1.2-3.4); Absolute Monocyte Count 0.44 10^3/uL (0.1-0.8); Absolute Neutrophil Count 2.41 10^3/uL (1.2-6.7); Basophils % 0.4; Eosinophils % 4.3; HCT 41.6 % (40.0-50.0); HGB 14.3 g/dL (13.5-17.5); Immature Grans % 0.2; Lymphocytes % 37.4; MCH 29.2 pg (27.0-33.0); MCHC 34.4 % (32.0-36.0); MCV 85.1 fL (80-95); Monocytes % 8.9; Neutrophils % 48.8; Nucleated RBC 0 %; Platelet Count 157 10^3/uL (130-400); RBC 4.89 10^6/uL (4.36-5.78); RDW 12.5 % (11.8-14.1); RDW-SD 38.5 fL; WBC 4.94 10^3/uL (4.4-10.8)
[2020-08-01 18:30] LABS: ALT 33 U/L (16-63); AST 14 U/L (15-37); Albumin 4.4 g/dL (3.4-5.0); Alkaline Phosphatase 65 U/L (46-116); Anion Gap 7.5 mmol/L (3-11); BUN 28 mg/dL (7-18); Bilirubin, Total 0.5 mg/dL (0.2-1.0); CO2 30.5 mmol/L (21.0-32.0); CREATININE 1.3 mg/dL (0.70-1.30); Calcium 9.3 mg/dL (8.5-10.1); Chloride 104 mmol/L (98-107); Glucose 169 mg/dL (74-106); Potassium 4.3 mmol/L (3.5-5.1); Sodium 142 mmol/L (136-145); Total Protein 7.6 g/dL (6.4-8.2)
[2020-08-01 18:35] LABS: C-Reactive Protein < 0.05 mg/dL (0.0-0.3)
[2020-08-02 09:26] LABS: ESR 13 mm/hr (<or=15)
== END 2020-08-01 03:36 | disposition home or self-care (01) ==
LOC: LBO 03:35
PROVIDERS: PCP Emergency Medicine; Visit Provider Podiatrist
DX: M86.171 Other acute osteomyelitis, right ankle and foot (principal)
CPT/HCPCS: 36415; 80053; 85652; 85025; 86140

== ENCOUNTER 2020-11-02 12:36 | Outpatient (CLI) | payer OTHER, MEDICAID, SELFPAY ==
--- NOTE | 2020-11-02 12:15 | DI.RAD_ITS ---
Exam(s) XR HIP LT COMPLETE AP PELVIS EXAM: XR HIP LT COMPLETE AP PELVIS INDICATION: left hip pain. MR MRI L LOWER JOINT WO CONT from 06/26/2017 TECHNIQUE: 2D digital imaging was performed. FINDINGS: The hip joint spaces are well maintained. There is acetabular spurring, greater on the left. The f emoral heads appear intact. IMPRESSION: Stable mild degenerative changes of both hips, left greater than right. DATA REPOSITORY: RADIATION DOSE DELIVERED:
== END 2020-11-02 12:37 | disposition home or self-care (01) ==
LOC: DIORS 12:36
PROVIDERS: PCP Emergency Medicine; Referring Provider Emergency Medicine; Visit Provider Physician Assistant
DX: M25.552 Pain in left hip (principal); M16.0 Bilateral primary osteoarthritis of hip
CPT/HCPCS: 73502

== ENCOUNTER 2020-12-27 02:54 | Outpatient (CLI) | payer OTHER, MEDICAID, SELFPAY ==
[2020-12-27 12:01] LABS: Source Nasal/Nares
[2020-12-27 14:24] LABS: COVID-19 PCR Negative (Negative)
== END 2020-12-27 02:55 | disposition home or self-care (01) ==
LOC: LBO 02:54
PROVIDERS: PCP Emergency Medicine; Visit Provider Student in an Organized Health Care Education/Training Program
DX: Z20.822 Contact with and (suspected) exposure to COVID-19 (principal); Z01.818 Encounter for other preprocedural examination
CPT/HCPCS: 87635

== ENCOUNTER 2020-12-29 06:20 | Day surgery (SDC) | payer OTHER, MEDICAID, SELFPAY ==
[2020-12-29] VITALS (12 sets, daily range): BP systolic 117–147; BP diastolic 67–97; PULSE 72–100; RESP 11–22; TEMP 36.1–36.5; O2SAT 93–100; BMI 28.3
[2020-12-29] MEDS: Lactated Ringers 1,000 ML 100 ML IV (07:02)
--- NOTE | 2020-12-29 07:14 | ANES.PREOP_ITS ---
General Info Date of Service Date Performed: 12/29/20 Height: 5 ft 11 in Weight: 92 kg Body Mass Index (BMI): 28.3 Surgical Procedure: Operation Date: 12/29/20 07:50 Proposed Procedures Side Surgeon p Hip Arthroscopy WITH LABRAL DEBRIDEMENT AND FEMOROPLASTY Left Nick Talbot MD s Hip ENDOSCOPIC ILIOTIBIAL BAND RELEASE WITH TROCHANTERIC BURSECTOMY Left Rio Talbot MD Meds Allergies and Home Medications Allergies Allergy/AdvReac Type Severity Reaction Status Date / Time prochlorperazine edisylate AdvReac Severe SEVERE Verified 12/29/20 06:35 [From Compazine] AGITATION promethazine HCl AdvReac Severe irritabilit Verified 12/29/20 06:35 [From Phenergan] y-severe Home Medication Medication Instructions Recorded lancets [FreeStyle Lancets] #300 ea 01/14/14 omeprazole [Prilosec] 20 mg PO DAILY #90 tab-cap 07/28/15 Freestyle [employer] Test Strips #300 strip 09/18/16 insulin lispro [Humalog KwikPen 6 - 12 unit SQ sliding scale 01/29/17 Insulin] atorvastatin 10 mg tablet 10 mg PO DAILY #90 tab 05/23/20 empagliflozin 10 mg tablet 10 mg PO DAILY #90 tab 05/23/20 blood-glucose meter,continuous #1 ea 06/29/20 ibuprofen 800 mg tablet 800 mg PO TID PRN #30 tab 07/05/20 blood-glucose transmitter #1 ea 07/12/20 blood-glucose sensor #3 ea 08/25/20 dulaglutide 0.75 mg/0.5 mL 0.75 mg SC QWEEK #2 ml 10/04/20 subcutaneous pen injector Current Visit Medications: Current Medications Generic Name Dose Route Start Last Admin Trade Name Freq PRN Reason Stop Dose Admin Ringer's Solution 1,000 mls @ 100 mls/hr 12/29/20 06:00 12/29/20 07:02 IV 01/27/21 23:59 100 mls/hr INFUSION ADAMARIS Administration Cefazolin Sodium/Dextrose 2 gm in 50 mls @ 100 mls/hr 12/29/20 06:00 Ancef Duplex IVPB 01/27/21 23:59 PREOP ADAMARIS IV Miscellaneous Supplies 1 each 12/29/20 06:00 Iv Access IV 01/27/21 23:59 DIRECTED ADAMARIS Sodium Chloride 0 ml 12/29/20 06:00 Normal Saline Flush 10 Ml Syr IV 01/27/21 23:59 PRN PRN Sodium Chloride 0 ml 12/29/20 06:00 Normal Saline 10 Ml Vial IJ 01/27/21 23:59 DIRECTED PRN Sterile Water 0 ml 12/29/20 06:00 Water,Injection,Sterile 10 Ml Vial IJ 01/27/21 23:59 DIRECTED PRN PFSH Active Problems Active Problems: Problem Status Onset Code Diabetic neuropathy 05/06/14 E11.40 Osteomyelitis M86.9 Labral tear of left hip joint S73.192A Trochanteric bursitis of both hips M70.61, M70.62 Iliotibial band syndrome of left side M76.32 Femoroacetabular impingement of right hip M25.851 Femoroacetabular impingement of left hip 07/23/17 M25.852 Diabetic toe ulcer in type 1 diabetes mellitus E10.621, L97.509 Medical History Medical History Bronchitis likely viral with some bronchospasm Cellulitis Diabetic foot ulcer associated with diabetes mellitus due to underlying condition Diabetic toe ulcer in type 1 diabetes mellitus Displacement of lumbar intervertebral disc without myelopathy Encephalopathy acute (03/23/14) due to recurrent profound hypoglycemia Femoroacetabular impingement of left hip (07/23/17) History of amputation of toe x2 Mild nonproliferative diabetic retinopathy (05/06/14) [facility]; MILD NPDR-kb Moderate nonproliferative diabetic retinopathy of both eyes (03/21/16) [facility], 06/25/16 Non-healing wound of lower extremity Toe erythema LEFT 5th digit Type II diabetes mellitus with neurological manifestations (05/06/13) Surgical History Surgical History History of arthroscopy of knee Open Carpal Tunnel release (~2000) LEFT Status post carpal tunnel release Tobacco Smoking/Tobacco Use Status: Never Alcohol Alcohol Intake: current Alcohol intake frequency: holidays/special occasions only Substance Use Substance use: Never Substance use type: does not use Vital Signs and Lab Results Vital Signs Most Recent Vital Signs in EMR: Most Recent Vital Signs Temp Pulse Resp BP Pulse Ox 36.2 C L 84 18 119/77 100 12/29/20 06:15 12/29/20 06:15 12/29/20 06:15 12/29/20 06:15 12/29/20 06:15 Lab Results Blood Type / Crossmatch: No Data to Display Complete Blood Count: No Data to Display Complete Metabolic Panel: No Data to Display Liver Function Panel: No Data to Display Coagulation Panel: No Data to Display Cardiac Panel: No Data to Display Arterial Blood Gas: No Data to Display Venous Blood Gas: No Data to Display Pancreas Panel: No Data to Display Thyroid Panel: No Data to Display Infectious Disease: Coronavirus (COVID-19)(PCR) Negative (Negative) 12/27/20 08:46 12/27/20 Coronavirus 2019 Source Nasal/Nares 12/27/20 08:46 12/27/20 Blood Cultures: No Data to Display Toxicology Panel: No Data to Display Anesthesia Assessment and Plan Anesthesia History Personal History: PONV Family History: No Family History of Anesthesia Complications Exercise Tolerance Exercise Tolerance: Metabolic Equivalents>4 Pertinent Negatives Pertinent Negatives: No Symptoms of GERD, No Major Cardiovascular Symptoms or Complaints, No Major Pulmonary Symptoms or Complaints and No History of CVA/TIA Cardiac & Pulmonary Exam Cardiac Exam: Normal S1/S2 Heart Sounds Pulmonary Exam: Clear Bilateral Breath Sounds Airway Exam Known Difficult Airway: No Mallampati Class: 1 Mouth Opening: Normal (> 3cm) Thyromental Distance: Greater than 3 cm Facial Hair: Full Posada Neck Range of Motion: Full ROM Neck Circumference: Normal Teeth Condition: Normal Dentition ASA Classification ASA Score: ASA 2 Emergency Case?: No NPO Status NPO Status: NPO Clears >2 hours, Solids >8 hours Anesthesia Plan Resuscitation Status: Full Code Anesthesia Technique: General Anesthesia Airway Planned: Endotracheal Tube Pain Management: Surgeon and patient request nerve block (SYLVIA) Monitors Used: Standard Monitors
--- NOTE | 2020-12-29 07:20 | DI.RAD_ITS ---
Exam(s) XR HIP LT IN OR EXAM: XR HIP LT IN OR CLINICAL HISTORY: hip arthroscopy TECHNIQUE: 2D and realtime digital imaging was performed. COMPARISON: No exams were available for comparison FINDINGS: C-arm fluoroscopy was utilized Dr. Talbot during hip arthroscopy. Please see Dr. Talbot is procedure n ote. IMPRESSION: RADIATION DOSE DELIVERED: stephanie Lepe=15.37 mGy
[2020-12-29] MEDS: ceFAZolin 2 GM/50 ML BAG IVPB (08:33)
--- NOTE | 2020-12-29 09:11 | W.ANESNERVE ---
Nerve Block Single Injection Procedure Date and Time Date Performed: 12/29/20 Procedure Start: 07:57 Location Where Procedure Performed Procedure Location: Operating Room Procedure Stop: 08:12 Reason Performed: Postoperative Analgesia Requesting Provider: Nick Talbot Timeout Performed Timeout Performed: Yes Monitoring Used ECG, Blood Pressure and SpO2 Sterility Sterility: Hand Hygiene, Surgical Cap, Surgical Mask, Sterile Gloves and Chlorhexidine Sedation Given During Procedure Sedation Given (Indicate Dose Given): No Sedation given Patient Mental Status Patient Mental Status: Performed under general anesthesia Nerve Block 1st Nerve Block: Laterality: Left Block Type: SYLVIA Needle / Catheter Used: 100mm SonoPlex II Local Anesthetic Bolus (Indicate Dose Given): Injected in 3-5ml increments after negative blood aspiration, Bupivacaine 0.25% Dose:: 15mL and Exparel Dose:: 10mL Additives (Indicate Dose Given): None Ultrasound: Sterile probe cover and gel used Ultrasound Image Saved?: Yes Nerve Stimulator: Not Used Paresthesia: None Procedure Tolerated: No Complications Procedure Outcome: Successful Performed By: Yancy Becerril Supervised By: Martinez Monge
--- NOTE | 2020-12-29 09:20 | ROE_ITS ---
Date of service: 12/29/20 Time of Service: 09:00 Operative Note Operative Note DATE OF PROCEDURE: 12/29/20 PRE-OP DIAGNOSIS: Left hip 1. Labral tear 2. Femoracetabular impingement 3. Iliotibial band syndrome 4. Trochanteric bursitis POST-OP DIAGNOSIS: same PROCEDURE: Left hip 1. Arthroscopic labral debridement, CPT# 77947 2. Arthroscopic femoroplasty, CPT# 88698 3. Endoscopic iliotibial band release, CPT# 32384 4. Endoscopic trochanteric bursectomy, CPT# 40698 SURGEON: Nick Talbot [employer]: Umang Elizondo ANESTHESIA TYPE: Local By Surgeon, General LMA/ETT and Primary Nerve Block (SYLVIA) Refer to Anesthesia Record ESTIMATED BLOOD LOSS: 15 COMPLICATIONS: None Patient was transported to: PACU Patient's condition: stable Implants: None Indications: Please see complete medical record for details. Findings: Anterior and anterior superior labral fraying with tear adjacent to cartilage thinning. Small distal CAM lesion and surrounding cartilage fibrillations and a few fissures. Remainder femoral head acetabular articular cartilage relatively intact. Thickened iliotibial band. Inflamed trochanteric bursitis Procedure Description: In the operating room, general and regional anesthesia were induced. The patient was positioned supine on the Henefer table. All bony prominences were well-padded. Preoperative antibiotics were administered. The correct patient, procedure, and side of the procedure were all verified prior to incision. Initially, appropriate hip joint distraction was confirmed under sterile technique releasing suction seal with the hip in slight abduction by carefully placing an 18-gauge spinal needle into the hip joint and performing an air arthrogram. The needle was removed, provisional traction released, and the hip prepped and draped in the usual sterile fashion. 20 cc of 0.5% bupivacaine containing epinephrine was infiltrated about the planned portal sites. Fluoroscopically, an anterolateral portal was established with hip under about 1 cm distraction. Traction start time as noted. Through the spinal needle, a nitinol wire was inserted and the needle removed. An 11 blade was used to create a portal sized incision about the Nitinol wire. A smal l 4 mm dilator was passed atraumatically over the nitinol wire through the capsule into the hip joint. The nitinol wire was removed. A 6 mm dilator was then passed over the smaller one into the hip joint and the initial dilator removed. The blunt end of a switching stick was then passed into the hip joint and the last dilator removed. The camera sleeve was then inserted over the switching stick, the switch to removed, and the arthroscope attached to the camera sleeve. An initial dry arthroscopy of the hip joint confirmed appropriate viewing portal location about the equator laterally. Using a combination of fluoroscopic guidance and arthroscopic triangulation a modified mid anterior portal was established in a similar fashion with a spinal needle and sequential dilators. Care was taken to ensure the portal was in an appropriate position and outside the labrum. A banana blade was inserted anteriorly over half pipe. The capsule was released distal to the labrum working short distance towards the anterolateral portal. The camera was then switched to the anterior portal, the anterolateral portal location was confirmed to be appropriate, and the banana blade brought in the anterolateral portal a similar small capsulotomy performed. The camera was then switched back to the anterolateral portal. A complete diagnostic arthroscopy of the hip was performed with relevant fi ndings noted above. Attention was then turned to the anterior superior labral tear. The tear was stable and had a degenerative?type appearance with fraying, wave sign of chondral labral junction, and cartilage thinning at the anterior superior acetabular margin. Decision was made to proceed with debridement. The mechanical shaver was used working and viewing through each portal to optimize resection of fraying and rough edges and establish smooth contour of labrum. The radiofrequency ablator was then passed over the zone of injury and and lightly indirectly used to denervate the labrum. The labrum was then tested with the probe found to remain stable without any additional tears. The blunt end of a switching stick was left in the anterior portal, but appropriately withdrawn from hip joint. The camera was withdrawn similarly. Under direct visualization traction was gradually released at 54 minutes. The femoral head neck junction was inspected about the zone of labral injury. The hip was brought through internal rotation, external rotation, and deep flexion with rotation. There was an area of cartilage injury adjacent to the labral tear along the somewhat distal lateral femoral head neck junction. The cam lesion had thin cartilage with fibrillations and fissures about a 15 x 8 mm region and a bony prominence that ended with an osteophyte type bump before the femoral neck. Position was optimized in relative flexion and internal rotation. The banana blade was brought in the anterior portal and used to extend the limited capsulotomy a few centimeters laterally to expose the lesion. A switching stick was used to retract the labrum distally. A distal anterior lateral portal was established using direct visual and fluoroscopic guidance. Starting with the mechanical shaver the cartilage irregularities were contoured as part of a chondroplasty and establishing the margin of bone and cartilage resection, which was verified under fluoroscopic guidance. The round bur was then brought in to complete bony resection with removal of the bony prominence and establishing a more appropriate concave femoral head neck margin. Appropriate resection was confirmed on flexion and internal rotation. The labrum was reinspected and lightly ablated of frayed tissue outside the joint. The limited capsulotomies had well apposed tissue ends and was not formally closed. The hip was drained of arthroscopic fluid. 10 cc of 0.25% bupivacaine containing epinephrine was infiltrated about the subcutaneous tissue and deeply over the greater trochanter. Under fluoroscopic guidance, a switching stick and arthroscope were inserted through the anterior lateral distal anterolateral portals localizing the iliotibial band over the greater trochanter. Blunt dissection and the mechanical shaver were used to resect fat and overlying tissue about the center of the iliotibial band and carefully expose the anterior and posterior margins. Once there was adequate exposure of the IT band, the greater trochanter was again localized under fluoroscopic guidance with a spinal needle inserted through the skin down to bone. This central area was marked using the radiofrequency ablator. The banana blade was brought in and used to create a 2 cm longitudinal incision in line with the IT band fibers as well as extending it in a cruciate fashion with 2 cm incisions anteriorly and posteriorly. The radiofrequency ablator was used to achieve hemostasis. The mechanical shaver was then used to debride the IT band released edges exposing the trochanteric bursa. The mechanical shaver was then used to excise the trochanteric bursa taking care to protect musculature about the margins of the greater trochanter as well as neurovascular structures especially posteriorly. There was excellent visualization of the vastus lateralis as well as gluteus medius confirming appropriate bursa excision. The hip was brought through range of motion including internal and external rotation and there was no impinging iliotibial band tissue or remaining pathologic bursa. The viewing and working portals were switched and appropriate IT band release, trochanteric bursa excision, and hemostasis confirmed. Suction was used to remove fluid from the endoscopic space. The portals were closed using 3-0 Monocryl in a buried fashion. Steri-Strips were applied over the incisions followed by Xeroform, 4 x 4 gauze, an ABD pad and secured with tape. The patient awoke from anesthesia without complication and was transferred to the recovery room in a stable condition.
[2020-12-29] MEDS: EPINEPHrine 30 MG/30 ML VIAL (10:00)
--- NOTE | 2020-12-29 11:05 | PDOC.DSDIS_ITS ---
Discharge Plan Disposition Patient Disposition: HOME Condition: Stable Discharge Details Reason For Visit: Left hip surgery Attending Provider: Nick Talbot Primary Care Provider: Darnell Crowder Home Meds and New Rx's Prescriptions: New aspirin 81 mg tablet,delayed release (DR/EC) 81 mg PO DAILY 14 Days Qty: 14 RF: 0 naproxen 250 mg tablet 250 - 500 mg PO BID PRN (Reason: Moderate pain or swelling) Qty: 30 RF: 0 oxycodone 5 mg tablet 5 - 10 mg PO Q4H PRN (Reason: moderate to severe pain) Qty: 12 RF: 0 Continued (DME) Dexcom G6 Transmitter Device See Rx Instructions .ROUTE .MEDSUPPLY Qty: 1 RF: 6 (DME) Dexcom G6 Systems Analyst Engineer Misc See Rx Instructions .ROUTE .MEDSUPPLY Qty: 1 RF: 0 (DME) lancets [FreeStyle Lancets] 1 EACH misc 1 ea Miscellaneous TID Qty: 300 RF: 4 omeprazole [Prilosec] 20 MG capsule,delayed release(DR/EC) 20 mg PO DAILY Qty: 90 RF: 6 (DME) Freestyle [employer] Test Strips 1 EACH strip 1 ea Miscellaneous TID Qty: 300 RF: 4 insulin lispro [Humalog KwikPen Insulin] 100 UNIT/1 ML insulin pen 6 - 12 unit SQ sliding scale RF: 0 atorvastatin 10 mg tablet 10 mg PO DAILY Qty: 90 RF: 4 Jardiance 10 mg tablet 10 mg PO DAILY Qty: 90 RF: 3 (DME) Dexcom G6 Sensor Device See Rx Instructions .ROUTE .MEDSUPPLY Qty: 3 RF: 8 Trulicity 0.75 mg/0.5 mL pen injector 0.75 mg SC QWEEK Qty: 2 RF: 12 Discontinued ibuprofen 800 mg tablet 800 mg PO TID PRN (Reason: pain) Qty: 30 RF: 0 Discharge Instructions Additional Instructions: Surgery: Hip arthroscopy with labral debridement and femoroplasty; Hip endoscopy with iliotibial band release and trochanteric bursectomy Activity: Weightbearing as tolerated. May discontinue crutches as soon as comfortable. Avoid deep hip flexion for 4 weeks. No cutting, pivoting, or sports for 2-3 months. A physical therapy prescription will be sent electronically to start in about 3 weeks. Prescriptions: Aspirin 81 mg take 1 daily to prevent a blood clot for 30 days Naproxen 250 mg take 1-2 every 12 hours with a meal as needed for moderate pain Oxycodone 5 mg take 1-2 every 4-6 hours as needed for severe pain You may use [id number] Tylenol (acetaminophen) as needed for mild pain. These pain medications may be taken all at once or in different combinations as needed. Also, recommend Colace (docusate) as a stool softener as surgery and pain medicine cause constipation. Dressings: Leave dressing in place for 3 days. May then remove and leave open to air or cover incisions with Band-Aids. May shower after 5 days. Follow-up: 10-[address] Talbot (9:15 AM on 01/09/21) Let us know right away if you develop any redness, drainage, fevers, chest pain, or trouble breathing. Do not drink alcohol or drive for at least 24 hours after anesthesia. Please call the office during business hours with any questions or concerns. Referrals: Nick Talbot MD [ [facility] STAFF PHYSICIAN] - Discharge Orders Discharge Orders: Discharge Order (Routine); Ordered 12/29/20 Ordered By: Nick Talbot DS: Diagnosis Discharge Diagnosis (1) Labral tear of left hip joint: Status: Acute (2) Trochanteric bursitis of both hips: Status: Acute (3) Iliotibial band syndrome of left side: Status: Acute (4) Femoroacetabular impingement of left hip: Status: Acute
[2020-12-29] MEDS: fentaNYL 100 MCG/2 ML VIAL IVP (11:25)
[2020-12-29] MEDS: Insulin Aspart 100 UNITS/ML UNIT SC (11:37)
[2020-12-29] MEDS: Insulin Aspart 100 UNITS/ML UNIT 6 UNITS SC (13:04)
[2020-12-29] MEDS: Naproxen 500 MG TAB PO (13:20)
--- NOTE | 2020-12-29 13:38 | W.ANESPOSTOP ---
Postoperative Evaluation Date, Time and Location Date Performed: 12/29/20 Time Performed: 13:39 Patient Location: Day Surgery Unit Vital Signs Most Recent Imported Vital Signs: Most Recent Vital Signs Temp Pulse Resp BP Pulse Ox 36.3 C L 72 16 135/97 H 97 12/29/20 13:00 12/29/20 13:00 12/29/20 13:00 12/29/20 13:00 12/29/20 13:00 Pain Score Most Recent Pain Score: Most Recent Pain Score Pain Level 3 12/29/20 13:00 Assessment Mental Status: Awake (Alert & Oriented to Patient Baseline) Airway and Respiratory Function: Patent airway with normal (patient baseline) respiratory exam Cardiovascular Function: Hemodynamically Stable Hydration Status: Adequately Hydrated Nausea & Vomiting: No Nausea or Vomiting Pain: Pt. Denies Any Pain Peripheral Nerve Block: Patient did not receive a nerve block Teaching Patient Teaching: Other (BG 249 awaiting peak of aspart sq x2)
--- NOTE | 2020-12-29 14:14 | W.ANESPOSTOP ---
Postoperative Evaluation Date, Time and Location Date Performed: 12/29/20 Time Performed: 14:14 Patient Location: Day Surgery Unit Vital Signs Most Recent Imported Vital Signs: Most Recent Vital Signs Temp Pulse Resp BP Pulse Ox 36.3 C L 100 H 16 132/86 96 12/29/20 13:38 12/29/20 13:38 12/29/20 13:38 12/29/20 13:38 12/29/20 13:38 Most Recent Vital Signs Temp Pulse Resp BP Pulse Ox 36.3 C L 72 16 135/97 H 97 12/29/20 13:00 12/29/20 13:00 12/29/20 13:00 12/29/20 13:00 12/29/20 13:00 Pain Score Most Recent Pain Score: Most Recent Pain Score Pain Level 8 12/29/20 13:38 Assessment Mental Status: Awake (Alert & Oriented to Patient Baseline) Airway and Respiratory Function: Patent airway with normal (patient baseline) respiratory exam Cardiovascular Function: Hemodynamically Stable Hydration Status: Adequately Hydrated Nausea & Vomiting: No Nausea or Vomiting Pain: Pt. Denies Any Pain Peripheral Nerve Block: Patient did not receive a nerve block Teaching Patient Teaching: Discussed Safe Use of Pain Medication Given Likely or Known FRANSISCO
== END 2020-12-29 14:15 | disposition home or self-care (01) ==
PROVIDERS: PCP Emergency Medicine; Visit Provider Student in an Organized Health Care Education/Training Program
PROC: (CPT 29860; principal; 2020-12-29 07:30)
PROC: (CPT 29863; 2020-12-29 07:30)
DX: M24.152 Other articular cartilage disorders, left hip (principal); M70.62 Trochanteric bursitis, left hip; M76.32 Iliotibial band syndrome, left leg; M25.852 Other specified joint disorders, left hip
CPT/HCPCS: 29914; 29862; 27305; 27062; 73501; J0690; J1100; J1815; J1885; J2001; J2250; J2405; J3010

== ENCOUNTER 2021-06-05 16:27 | Outpatient (REF) | payer OTHER, MEDICAID, SELFPAY ==
[2021-06-05 19:39] LABS: COMMENT (LAB VIEW ONLY) 92.62 mg/dL; Microalb ug/mg Crea 9.2 ug/mg Cr
== END 2021-06-05 16:28 | disposition home or self-care (01) ==
LOC: LBN 16:27
PROVIDERS: PCP Emergency Medicine; Visit Provider Family Medicine
DX: E11.40 Type 2 diabetes mellitus with diabetic neuropathy, unspecified (principal); E78.5 Hyperlipidemia, unspecified
CPT/HCPCS: 82043; 82570

== ENCOUNTER 2021-11-04 15:31 | Emergency (ER) | payer OTHER, MEDICAID, SELFPAY ==
[2021-11-04 15:37] VITALS: BP 165/100; PULSE 88; RESP 16; TEMP 36.7; O2SAT 98
--- NOTE | 2021-11-04 15:45 | DI.RAD_ITS ---
Exam(s) XR FOOT RT COMPLETE EXAM: XR FOOT RT COMPLETE CLINICAL HISTORY: stepped on object, base of 5th digit. TECHNIQUE: 2D digital imaging was performed. Three views. 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 No gross evidence osteomyelitis. No acute fracture is present. No bony destructive lesion is seen. JOINTS: No dislocation present. SOFT TISSUE: Soft tissue swelling with laceration the lateral aspect of the foot at the level of the 5th MTP joint. Tiny amount of debris in the wound. IMPRESSION: Soft tissue laceration near 5th MTP joint. DATA REPOSITORY: RADIATION DOSE DELIVERED:
--- NOTE | 2021-11-04 15:55 | W.ED.GENAD ---
Discharge Plan Disposition Patient Disposition: HOME Condition: Stable Discharge Details Clinical Impression: Infection of right foot Primary Care Provider: Patrice Chew ED Provider: Jonathon Mcclellan Home Meds and New Rx's Prescriptions: New ciprofloxacin HCl [Cipro] 500 mg tablet 500 mg PO BID Qty: 20 0RF cephalexin 500 mg capsule 500 mg PO QID Qty: 40 0RF Continued cephalexin 500 mg capsule 500 mg PO TID Qty: 21 0RF (DME) Dexcom G6 Presser And Blocker Knitted Goods Misc See Rx Instructions .ROUTE .MEDSUPPLY Qty: 1 Rx Instructions: As directed (DME) lancets [FreeStyle Lancets] 1 EACH misc 1 ea Miscellaneous TID Qty: 300 omeprazole [Prilosec] 20 MG capsule,delayed release(DR/EC) 20 mg PO DAILY Qty: 90 (DME) Freestyle [employer] Test Strips 1 EACH strip 1 ea Miscellaneous TID Qty: 300 atorvastatin 10 mg tablet 10 mg PO DAILY Qty: 90 4RF (DME) Dexcom G6 Sensor Device See Rx Instructions .ROUTE .MEDSUPPLY Qty: 3 8RF Rx Instructions: As directed (DME) Dexcom G6 Transmitter Device See Rx Instructions .ROUTE .COMPLEX Qty: 1 0RF Dose Instruction: USE DIRECTED Rx Instructions: USE DIRECTED insulin lispro [Humalog KwikPen Insulin] 100 unit/mL insulin pen See Rx Instructions .ROUTE .COMPLEX Qty: 15 5RF Dose Instruction: INJECT 6 TO 12 UNITS SUBCUTANEOUSLY SLIDING SCALE CARB COUNTING Rx Instructions: INJECT 6 TO 12 UNITS SUBCUTANEOUSLY SLIDING SCALE CARB COUNTING (DME) Blood Glucose Test Strip See Rx Instructions .ROUTE .MEDSUPPLY Qty: 400 3RF Rx Instructions: test four times a day (DME) lancets Misc See Rx Instructions .ROUTE .MEDSUPPLY Qty: 400 3RF Rx Instructions: four time a day Jardiance 10 mg tablet See Rx Instructions .ROUTE .COMPLEX Qty: 90 3RF Dose Instruction: TAKE 1 TABLET BY MOUTH DAILY Rx Instructions: TAKE 1 TABLET BY MOUTH DAILY Trulicity 0.75 mg/0.5 mL pen injector 0.75 mg SC QWEEK Qty: 2 12RF Discharge Instructions Instructions: Cellulitis (ED) Additional Instructions: Laboratory values and x-ray did not reveal any obvious signs of osteomyelitis. X-ray does reveal a potential extremely small radiopaque foreign body but given your history of diabetes, unknown duration of wound, osteomyelitis, etc., I am hesitant to emergently attempt to remove this foreign body and believe you are best evaluated by a policy checker. Cipro and Keflex as directed. Rest, elevate, warm compresses every 2 hours for 20 minutes. Change antibiotic dressing daily. Please watch for new or worsening symptoms and return to the ER for any concerns. Otherwise I would contact your podiatry team tomorrow to make them aware of your ER visit and set up outpatient reevaluation. Discharge Data Discharge Date/Time-TO BE ENTERED AT DEPARTURE: 11/04/21 17:15 Medical Decision Making This is a 46-year-old gentleman, past medical history of diabetes, osteomyelitis, severe neuropathy, presenting for a right foot wound that he states he would guess has been there no longer than 1-2 weeks but he is not positive. Given he has severe neuropathy he has no discomfort. He states that his significant other looked at his foot today and noticed a large wound. Tetanus status is up-to-date. Plan is to obtain IV access, CBC, CMP, ESR, CRP and an x-ray. Clinically this appears to be a wound with localized cellulitis, lower suspicion for osteomyelitis. Clinically he appears well, nontoxic he is afebrile. CBC of 5.84. ESR 7. CRP minimally elevated at 0.82. X-ray reveals a soft tissue defect seen along the plantar aspect of the foot with a tiny radiopaque density which could represent foreign body. Clinically no signs of osteomyelitis or sepsis. Plan is to provide prescription for both Keflex and Cipro. Patient states that he does not know when the wound occurred, does not believe it likely went through a rubber soled shoe. Given his history of diabetes, neuropathy, osteomyelitis, unknown duration of wound, I am rather hesitant to explore the wound here emergently in the ER to remove a tiny foreign body. Patient does see podiatry, Dr. Edwards, and I believe it is reasonable to follow-up as an outpatient for further evaluation. Strict discharge and return precautions were provided. Patient understands, is agreeable to this plan, and has no additional questions or concerns upon discharge. This documentation was generated using [employer] system, please disregard any oddities of phrase or misspellings. Medical Records Medical records reviewed: Yes I reviewed the patient's medical records. Imaging Data Radiologic Study: Attestation: I personally reviewed and interpreted this imaging study as follows: Imaging: X-Ray Radiologist's impression: PROCEDURE INFORMATION: Exam: XR Right Foot Exam date and time: 11/04/2021 4:09 PM Age: 46 years old Clinical indication: Injury or trauma; Other: Stepped on object, base of 5th digit; Puncture; Foot; Right; Foreign body involvement not specified TECHNIQUE: Imaging protocol: XR Right foot. Views: 3 or more views. COMPARISON: MR LOWER EXTREMITY RT WO/W 07/07/2020 7:57 AM FINDINGS: Bones/joints: Amputation of the 2nd and 3rd rays at the level of the metatarsal heads. no acute fracture or dislocation. Soft tissues: soft tissue defect seen along the plantar aspect of the foot. Tiny radiopaque densities are seen at this area. soft tissue swelling. Vasculature: Vascular calcifications. IMPRESSION: There is a soft tissue defect seen along the plantar aspect of the foot with tiny radiopaque densities which could represent foreign bodies. Lab Data Lab results reviewed: Yes I reviewed the patient's lab results. Labs: Laboratory Tests Range/Units 11/04/21 11/04/21 11/04/21 16:00 16:00 16:00 WBC (4.4-10.8) 10^3/uL 5.84 RBC (4.36-5.78) 10^6/uL 5.02 Hgb (13.5-17.5) g/dL 14.2 Hct (40.0-50.0) % 41.2 MCV (80-95) fL 82 MCH (27.0-33.0) pg 28.3 MCHC (32.0-36.0) % 34.5 RDW (11.8-14.1) % 11.9 Plt Count (130-400) 10^3/uL 167 MPV (8.0-11.0) fL 9.7 Immature Gran % 0.3 Neutrophils % 61.4 Lymphocytes % 27.9 Monocytes % 7.7 Eosinophils % 2.4 Basophils % 0.3 Nucleated RBC % (0.0-0.3) % 0.0 Absolute Neutrophils (1.2-6.7) 10^3/uL 3.58 Absolute Lymphocytes (1.2-3.4) 10^3/uL 1.63 Absolute Monocytes (0.1-0.8) 10^3/uL 0.45 Absolute Eosinophils (0.0-0.7) 10^3/uL 0.14 Absolute Basophils (0.0-0.2) 10^3/uL 0.02 ESR (0-15) mm/hr 7 Sodium (136-145) mmol/L 139 Potassium (3.5-5.1) mmol/L 4.6 Chloride (98-107) mmol/L 103 Carbon Dioxide (21.0-32.0) mmol/L 30.0 Anion Gap (3-11) mmol/L 6.0 BUN (7-18) mg/dL 16 Creatinine (0.70-1.30) mg/dL 1.1 Estimated GFR/1.73 m2 (mL/min/1.73m2) >= 60.00 Glucose (74-106) mg/dL 173 H Calcium (8.5-10.1) mg/dL 8.9 Total Bilirubin (0.2-1.0) mg/dL 0.4 AST (15-37) U/L 13 L ALT (16-63) U/L 22 Alkaline Phosphatase (46-116) U/L 71 C-Reactive Protein (0.0-0.3) mg/dL 0.82 H Total Protein (6.4-8.2) g/dL 7.8 Albumin (3.4-5.0) g/dL 4.0 HPI General Mode of arrival: ambulatory. Date/Time Provider Initiated Documentation: 11/04/21 15:43. Limitations to Documentation: no limitations. Information obtained by: patient. History of Present Illness 46 year old M presents to the emergency department with the chief complaint of R foot infection, described as mild, with intensity rated at 2. Quality is described as other (swelling), and is localized to the right and lower extremity. Patient reports no radiation. Patient started experiencing this unknown (best guess is within 1-2 weeks) and it has been constant. No relieving factors improve symptom(s), No exacerbating factors reported . Patient notes no other symptoms.. Patient did receive the following treatments prior to arrival, none Related Data Home Medications Medication Instructions Recorded Confirmed lancets 28 gauge (FreeStyle #300 ea 01/14/14 11/04/21 Lancets) omeprazole 20 mg capsule,delayed 20 mg PO DAILY #90 tab-caps 07/28/15 11/04/21 release (Prilosec) blood sugar diagnostic (Freestyle #300 strips 09/18/16 11/04/21 [employer] Test Strips) atorvastatin 10 mg tablet 10 mg PO DAILY #90 tabs 05/23/20 11/04/21 blood-glucose meter,continuous #1 ea 06/29/20 11/04/21 (Dexcom G6 Presser And Blocker Knitted Goods misc) cephalexin 500 mg capsule 500 mg PO TID #21 caps 06/05/21 11/04/21 blood-glucose sensor (Dexcom G6 #3 ea 07/13/21 11/04/21 Sensor device) blood-glucose transmitter (Dexcom #1 ea 08/28/21 11/04/21 G6 Transmitter device) insulin lispro 100 unit/mL See Rx Instructions .Route 08/31/21 11/04/21 subcutaneous pen (Humalog KwikPen .COMPLEX #15 mL (U-100) Insulin) blood sugar diagnostic (Blood #400 ea 10/02/21 11/04/21 Glucose Test strips) lancets #400 ea 22 11/04/21 empagliflozin 10 mg tablet See Rx Instructions .Route 10/09/21 11/04/21 (Jardiance) .COMPLEX #90 tabs dulaglutide 0.75 mg/0.5 mL 0.75 mg (0.5 mL) subcut QWEEK #2 mL 10/26/21 11/04/21 subcutaneous pen injector (Trulicity) cephalexin 500 mg capsule 500 mg PO QID #40 caps 11/04/21 ciprofloxacin HCl 500 mg tablet 500 mg PO BID #20 tabs 11/04/21 (Cipro) Previous Rx's Medication Instructions Recorded atorvastatin 10 mg tablet 10 mg PO DAILY #90 tabs 05/23/20 cephalexin 500 mg capsule 500 mg PO TID #21 caps 06/05/21 blood-glucose sensor (Dexcom G6 #3 ea 07/13/21 Sensor device) blood-glucose transmitter (Dexcom #1 ea 08/28/21 G6 Transmitter device) insulin lispro 100 unit/mL See Rx Instructions .Route 08/31/21 subcutaneous pen (Humalog KwikPen .COMPLEX #15 mL (U-100) Insulin) blood sugar diagnostic (Blood #400 ea 05/10/22 Glucose Test strips) lancets #400 ea 10/02/21 empagliflozin 10 mg tablet See Rx Instructions .Route 10/09/21 (Jardiance) .COMPLEX #90 tabs dulaglutide 0.75 mg/0.5 mL 0.75 mg (0.5 mL) subcut QWEEK #2 mL 10/26/21 subcutaneous pen injector (Trulicity) cephalexin 500 mg capsule 500 mg PO QID #40 caps 11/04/21 ciprofloxacin HCl 500 mg tablet 500 mg PO BID #20 tabs 11/04/21 (Cipro) Allergies Allergy/AdvReac Type Severity Reaction Status Date / Time prochlorperazine edisylate AdvReac Severe SEVERE Verified 11/04/21 15:43 [From Compazine] AGITATION promethazine HCl AdvReac Severe irritabilit Verified 11/04/21 15:43 [From Phenergan] y-severe General Stated Complaint: Laceration GINA: 3 Review of Systems Constitutional Constitutional: Denies fever(s) Musculoskeletal Musculoskeletal: Denies arthralgias, Reports numbness (Baseline neuropathy), Denies stiffness and Denies tingling Integumentary/Breasts Skin/Breast: Reports erythema Neurologic Neurologic: Reports numbness (Baseline neuropathy) and Denies tingling PFSH All Active Problems (Updated 11/04/21 @ 16:56 by GISELE Demarco) Infection of right foot (Acute) Diabetic retinopathy (Acute) Femoroacetabular impingement of both hips (Acute) L>R, s/p sx on left 2020 also hx of trochanteric bursitis, ilio-tibial band syndrome, and Labral tear on left Hyperlipidemia (Acute) Type 2 diabetes mellitus with diabetic neuropathy, unspecified (Acute) Osteomyelitis (Acute) s/p toe amputation toes on right , second and third distal digit, 2019 Medical History Amputated toe of right foot Bronchitis likely viral with some bronchospasm Cellulitis Diabetic foot ulcer associated with diabetes mellitus due to underlying condition Displacement of lumbar intervertebral disc without myelopathy Encephalopathy acute (03/23/14) due to recurrent profound hypoglycemia History of amputation of toe x2 Mild nonproliferative diabetic retinopathy (05/06/14) [facility] 05/06/14 [facility]; MILD [id number] Moderate nonproliferative diabetic retinopathy of both eyes (03/21/16) [facility] 03/21[facility], 06/25/16 Non-healing wound of lower extremity Toe erythema LEFT 5th digit Type II diabetes mellitus with neurological manifestations (05/06/13) Surgical History History of arthroscopy of knee History of hip surgery [id number] impingement syndrome Open Carpal Tunnel release (~2000) LEFT Status post carpal tunnel release Social History Smoking/Tobacco Use Status: Never Smoking risk assessment performed?: Yes Alcohol Intake: current Alcohol Intake frequency: holidays/special occasions only Drug use: Never Substance use type: does not use Current gender identity: male Do you feel safe at home: Yes Do you feel safe in your relationship?: Yes Exam Const General: cooperative, healthy appearing, comfortable and no acute distress Orientation: alert and awake HENVT Head: normal to inspection, normocephalic and atraumatic Eyes Conjunctivae: conjunctivae normal Neck Neck: normal visual inspection, trachea midline and supple Resp Effort & Inspection: normal respiratory effort and able to speak in complete sentences Cardio Rate: regular rate Rhythm: regular rhythm Skin General skin exam: erythema Neuro General: patient alert, patient awake, moves all extremities and no focal motor deficits Cognition: normal cognition Speech: speech normal Gait: normal gait Motor: muscle tone normal throughout Extrem General: full ROM and capillary refill normal Other: Right foot status post second toe amputations. At the plantar base of the fifth MTP joint there is a wound-puncture with surrounding mild erythema and warmth, there is no obvious foreign body, drainage, induration or fluctuance. There is no lymphangitic streaking. There is a small amount of swelling to the lateral malleolus and the dorsum of the foot, calf is unremarkable, negative Homans' sign. Full range of motion. No sensation which is baseline secondary to neuropathy. Psych Appearance: grossly normal Mental Status: mental status grossly normal Course Vital Signs Vital signs: Vital Signs Temperature 36.7 C 11/04/21 15:37 Pulse 88 11/04/21 15:37 Respiratory Rate 16 11/04/21 15:37 Blood Pressure 165/100 H 11/04/21 15:37 Pulse Oximetry 98 11/04/21 15:37 Temperature 36.7 C 11/04/21 15:37 Temperature Source Oral 11/04/21 15:37 Pulse 88 11/04/21 15:37 Respiratory Rate 16 11/04/21 15:37 Blood Pressure 165/100 H 11/04/21 15:37 Blood Pressure Position Sitting 11/04/21 15:37 Pulse Oximetry 98 11/04/21 15:37 Oxygen Delivery Method Room Air 11/04/21 15:37 Oxygen Flow Rate 0 11/04/21 15:37 Pain Level 2 11/04/21 15:37
[2021-11-04 16:05] LABS: Abs Immature Grans 0.02 10^3/uL (0.0-0.06); Absolute Basophil Count 0.02 10^3/uL (0.0-0.2); Absolute Eosinophil Count 0.14 10^3/uL (0.0-0.7); Absolute Lymphocyte Count 1.63 10^3/uL (1.2-3.4); Absolute Monocyte Count 0.45 10^3/uL (0.1-0.8); Absolute Neutrophil Count 3.58 10^3/uL (1.2-6.7); Basophils % 0.3; Eosinophils % 2.4; HCT 41.2 % (40.0-50.0); HGB 14.2 g/dL (13.5-17.5); Immature Grans % 0.3; Lymphocytes % 27.9; MCH 28.3 pg (27.0-33.0); MCHC 34.5 % (32.0-36.0); MCV 82 fL (80-95); MPV 9.7 fL (8.0-11.0); Monocytes % 7.7; Neutrophils % 61.4; Platelet Count 167 10^3/uL (130-400); RBC 5.02 10^6/uL (4.36-5.78); RDW 11.9 % (11.8-14.1); RDW-SD 35.1 fL; WBC 5.84 10^3/uL (4.4-10.8)
[2021-11-04 16:09] LABS: ESR 7 mm/hr (0-15)
[2021-11-04 16:17] LABS: ALT 22 U/L (16-63); AST 13 U/L (15-37); Alkaline Phosphatase 71 U/L (46-116); BUN 16 mg/dL (7-18); Bilirubin, Total 0.4 mg/dL (0.2-1.0); C-Reactive Protein 0.82 mg/dL (0.0-0.3); CREATININE 1.1 mg/dL (0.70-1.30); Calcium 8.9 mg/dL (8.5-10.1); Chloride 103 mmol/L (98-107); Glucose 173 mg/dL (74-106); Potassium 4.6 mmol/L (3.5-5.1); Sodium 139 mmol/L (136-145); Total Protein 7.8 g/dL (6.4-8.2)
--- NOTE | 2021-11-04 16:18 | DI.VRAD_ITS ---
PROCEDURE INFORMATION: Exam: XR Right Foot Exam date and time: 11/04/2021 4:09 PM Age: 46 years old Clinical indication: Injury or trauma; Other: Stepped on object, base of 5th digit; Puncture; Foot; Right; Foreign body involvement not specified TECHNIQUE: Imaging protocol: XR Right foot. Views: 3 or more views. COMPARISON: MR LOWER EXTREMITY RT WO/W 07/07/2020 7:57 AM FINDINGS: Bones/joints: Amputation of the 2nd and 3rd rays at the level of the metatarsal heads. no acute fracture or dislocation. Soft tissues: soft tissue defect seen along the plantar aspect of the foot. Tiny radiopaque densities are seen at this area. soft tissue swelling. Vasculature: Vascular calcifications. IMPRESSION: There is a soft tissue defect seen along the plantar aspect of the foot with tiny radiopaque densities which could represent foreign bodies. Dictated and Authenticated by: Dirk Casper MD. Ordering:ROLANDO Holt MD
[2021-11-04] MEDS: Cephalexin 500 MG CAP PO (16:45)
[2021-11-04] MEDS: Ciprofloxacin 500 MG TAB PO (16:45)
[2021-11-04 17:05] VITALS: BP 136/84; PULSE 69; RESP 18; TEMP 37; O2SAT 98
== END 2021-11-04 17:15 | disposition home or self-care (01) ==
PROVIDERS: Emergency Provider Physician Assistant; PCP Family Medicine
DX: S91.341A Puncture wound with foreign body, right foot, initial encounter (principal); L03.115 Cellulitis of right lower limb; X58.XXXA Exposure to other specified factors, initial encounter; E11.40 Type 2 diabetes mellitus with diabetic neuropathy, unspecified; E11.319 Type 2 diabetes mellitus with unspecified diabetic retinopathy without macular edema
CPT/HCPCS: 36415; 80053; 85652; 99283; 73630; 85025; 86140

== ENCOUNTER 2021-12-13 16:44 | Outpatient (REF) | payer OTHER, MEDICAID, SELFPAY ==
[2021-12-15 10:36] LABS: COVID-19 RT-PCR UVMMC Result Negative (Negative)
== END 2021-12-13 16:45 | disposition home or self-care (01) ==
LOC: LBN 16:44
PROVIDERS: PCP Nurse Practitioner Family; Visit Provider Nurse Practitioner Family
DX: Z20.822 Contact with and (suspected) exposure to COVID-19 (principal)
CPT/HCPCS: U0003

== ENCOUNTER 2022-10-25 07:59 | Outpatient (CLI) | payer BC, MEDICAID, SELFPAY ==
[2022-10-25 13:13] LABS: ALT 37 U/L (16-63); AST 21 U/L (15-37); Albumin 4.1 g/dL (3.4-5.0); Alkaline Phosphatase 65 U/L (46-116); Anion Gap 6.7 mmol/L (3-11); BUN 22 mg/dL (7-18); Bilirubin, Total 0.5 mg/dL (0.2-1.0); CO2 29.3 mmol/L (21.0-32.0); CREATININE 1.3 mg/dL (0.70-1.30); Calculated LDL 76 mg/dL (<100); Chloride 105 mmol/L (98-107); Cholesterol 144 mg/dL (<200); Estimated GFR 69.04 (mL/min/1.73m2); Glucose 172 mg/dL (74-106); HDL Cholesterol 43 mg/dL (40-60); Potassium 4.4 mmol/L (3.5-5.1); Sodium 141 mmol/L (136-145); TSH (W/Ref FT4) 1.91 uIU/mL (0.36-3.74); Total Protein 7.9 g/dL (6.4-8.2); Triglyceride 125 mg/dL (<150)
== END 2022-10-25 08:00 | disposition home or self-care (01) ==
LOC: LOS 07:59
PROVIDERS: PCP Nurse Practitioner Family; Visit Provider Nurse Practitioner Family
DX: E11.40 Type 2 diabetes mellitus with diabetic neuropathy, unspecified (principal); Z79.4 Long term (current) use of insulin; E78.5 Hyperlipidemia, unspecified
CPT/HCPCS: 36415; 80053; 80061; 84443

== ENCOUNTER 2023-01-17 08:10 | Day surgery (SDC) | payer BC, MEDICAID, SELFPAY ==
--- NOTE | 2023-01-16 19:40 | W.COLOREPORT ---
Date of service: 01/17/23 Time of Service: 10:04 Colonoscopy Report Date of procedure: 01/17/23 Pre-op diagnosis general: crc screening Post-op diagnosis procedure note: other (Right-sided diverticula and polyps) Surgeon: Alberta Mccarthy Anesthesia Type: General:No Airway Estimated blood loss (mL): 1 Pathology: other Complications: None Disposition: same day Prep: Miralax/Dulcolax Retraction Time: 7 Procedure Description: After informed consent was obtained the patient was taken to the procedure room and placed in a left decubitous position. Monitors were applied and a time out was done. The patients name, date of , procedure, allergies to medications and metal in their body was reviewed. The patient was then sedated. Once sedated and comfortable a rectal exam was done. External exam was normal. Internal exam revealed a normal sphincter tone and no palpable masses. The scope was then introduced and retrofelexed. No internal hemorrhoids were identified. The scope was then advanced to the cecum without difficulty. The TI and appendiceal orifice were identified. The prep was BBPS 2 in all segments for total of 6. The scope was then slowly retracted over 7 minutes back into the rectum. He had few right-sided diverticula. There were no signs of active bleeding or infection. He had a 1 cm pedunculated polyp at 30 cm. This is removed with a cold snare. All specimen is retrieved and no bleeding is noted. The procedure was complicated by laryngeal spasm. There was no sign of aspiration. the scope was removed and the patient was woken up and taken back to Same day surgery in stable condition. The patient tolerated the procedure well and there were no immediate complications. Follow up: The patient should follow up in 3-5, years unless they develop changes in bowel habits or other new gastrointestinal complaints.
--- NOTE | 2023-01-16 19:41 | W.PM.DSUDISC ---
Date of service: 01/17/23 Time of Service: 10:02 Discharge Plan Disposition Patient Disposition: Home Condition: Good Discharge Details Reason For Visit: colon scope Attending Provider: Alberta Mccarthy Primary Care Provider: Michelle Fernandez Meds and New Rx's Prescriptions: Continued (DME) Dexcom G7 Laundry Or Dry Cleaners Counter Clerk Misc See Rx Instructions .Route Qty: 1 3RF Rx Instructions: Continuous glucose monitor (DME) Dexcom G7 Sensor Device See Rx Instructions .Route Qty: 3 3RF Rx Instructions: Continuous glucose monitor Jardiance 10 mg tablet 10 mg PO DAILY Qty: 90 3RF (DME) blood-glucose meter [Freestyle [employer]] Misc See Rx Instructions .Route Qty: 1 3RF Rx Instructions: Check blood sugar 4 times a day (DME) Freestyle [employer] Test Strips Strip See Rx Instructions .Route Qty: 400 3RF Rx Instructions: Check blood sugar 4 times a day (DME) lancets [FreeStyle Lancets] 28 gauge misc See Rx Instructions .Route Qty: 400 3RF Rx Instructions: Check blood sugar 4 times a day atorvastatin 10 mg tablet 10 mg PO DAILY Qty: 90 3RF Trulicity 0.75 mg/0.5 mL pen injector 0.75 mg SC QWEEK Qty: 12 3RF omeprazole 20 mg capsule,delayed release(DR/EC) 20 mg PO DAILY Qty: 90 3RF (DME) pen needle, diabetic [BD Ultra-Fine Short Pen Needle] 31 gauge x 5/16 needle See Rx Instructions .MEDSUPPLY Qty: 400 3RF Rx Instructions: Use with pen three times a day insulin lispro [Humalog KwikPen Insulin] 100 unit/mL insulin pen 1 sliding scale dose subcut TID Qty: 15 5RF Rx Instructions: Per sliding scale, typically 6-12 units with meals Discontinued polyethylene glycol 3350 17 gram/dose powder 238 g PO ONCE Qty: 238 0RF Rx Instructions: take per colonoscopy instructions bisacodyl [Dulcolax (bisacodyl)] 5 mg tablet,delayed release (DR/EC) 5 mg PO ONCE Qty: 4 0RF Rx Instructions: take per colonoscopy instructions Discharge Instructions Additional Instructions: DSU Colonoscopy Post-Op Instructions Instructions for Everyone who is given Anesthesia: For your safety, please do the following for the next twenty-four (24) hours: *Do Not operate a motor vehicle (car, truck, motorcycle, etc.) *Do Not drink alcoholic beverages or use any recreational drugs for the first 24 hours or while taking pain medications. The medications in your body may have a reaction that can be dangerous. *Do Not make any important decisions or sign any important papers. Findings: Right-sided diverticula. Make sure you are moving your bowels on a regular basis and not straining to go to the bathroom. If you find you are having issues with constipation, we recommend you start a fiber supplement such as Metamucil daily. Polyps. My office will send you a letter in 2 to 3 weeks time with the results, and when we want you to repeat the colonoscopy. 1. No lifting over 20 pounds or strenuous activity for the first 24 hours after your procedure. After 24 hours there are no restrictions on your activity but you may feel fatigued for a few days. 2. After you arrive home you may have a light meal and return to your normal diet as you can tolerate it without feeling sick to your stomach. 3. You may have a bloated, gaseous feeling in your belly (abdomen) after a colonoscopy. Passing gas and belching will help. Walking or lying down on your left side with your knees flexed may relieve the discomfort. Call the office at [phone] (Office) or [phone] (Hospital) right away if you notice any of the following: a.Vomiting of blood or ?coffee ground stools?. b.Rectal bleeding 1Tbsp, blood clots or continuous bleeding. c.Severe belly (abdominal) pain. d.A hard distended belly (abdomen) and an inability to pass gas. 4. Please don?t expect to have a normal BM (bowel movement) for 2-3 days after your procedure. 5. If there are questions regarding the findings of your procedure, please contact your doctor 6. If you are unable to contact your doctor with a problem, contact the hospital at [phone]. 7. Continue all your regular medications unless directed otherwise. I understand the above instructions and have no questions. Signature of Patient or Adult Escort Name of Responsible Adult Escort Signature of Nurse Date/Time Activity:: see above Diet:: see above Discharge Orders Discharge Orders: Discharge Order (Routine); Ordered 01/17/23 Ordered By: Alberta Mccarthy DS: Diagnosis Discharge Diagnosis (1) Type 2 diabetes mellitus with diabetic neuropathy, with long-term current use of insulin: Status: Chronic (2) Diabetic retinopathy: Status: Chronic (3) Hyperlipidemia: Status: Chronic (4) GERD (gastroesophageal reflux disease): Status: Chronic (5) Screening for malignant neoplasm of colon performed: Status: Acute Asessment and Plan: The patient is seen and examined after their colonoscopy.? The patient has been able to pass gas.? They are not having abdominal pain.? They have been able to tolerate liquids and a snack.? They do not have any nausea or vomiting.? They are not having any chest pain or shortness of breath.??? They are not having any rectal bleeding. Their vital signs have been stable-see nursing notes. We discussed findings during their colonoscopy, and any biopsies that were done/polyps that were removed. The patient will be sent a letter with any biopsy results, and when to repeat the colonoscopy.-see discharge instructions. Patient was given explicit instructions to follow-up regarding colonoscopy-refer to discharge instructions.? We reviewed resumption of medications. Patient verbalized understanding and discharged in stable and satisfactory condition- See nursing notes. (6) Adenomatous polyps: Status: Acute (7) Diverticula of colon: Status: Acute
[2023-01-17 08:10] VITALS: BP 103/82; PULSE 90; RESP 18; TEMP 36.3; O2SAT 99
--- NOTE | 2023-01-17 08:58 | ANES.PREOP_ITS ---
General Info Date of Service Date Performed: 01/17/23 Height: 5 ft 11 in Weight: 90.9 kg Body Mass Index (BMI): 27.9 Surgical Procedure: Operation Date: 01/17/23 09:05 Proposed Procedure Side Surgeon josé miguel Mccarthy, DO Meds Allergies and Home Medications Allergies Allergy/AdvReac Type Severity Reaction Status Date / Time prochlorperazine edisylate AdvReac Severe SEVERE Verified 01/17/23 08:28 [From Compazine] AGITATION promethazine HCl AdvReac Severe irritabilit Verified 01/17/23 08:28 [From Phenergan] y-severe Home Medication Medication Instructions Recorded atorvastatin 10 mg tablet 10 mg PO DAILY #90 tabs 06/12/22 blood sugar diagnostic (Freestyle #400 ea 06/12/22 [employer] Test Strips) blood-glucose meter (Freestyle #1 ea 06/12/22 [employer] meter) dulaglutide 0.75 mg/0.5 mL 0.75 mg (0.5 mL) subcut QWEEK #12 06/12/22 subcutaneous pen injector SYRGS (Trulicity) empagliflozin 10 mg tablet 10 mg PO DAILY #90 tabs 06/12/22 (Jardiance) lancets 28 gauge (FreeStyle #400 ea 06/12/22 Lancets) omeprazole 20 mg capsule,delayed 20 mg PO DAILY #90 tab-caps 06/12/22 release pen needle, diabetic 31 gauge x #400 ea 06/12/22 5/16 (BD Ultra-Fine Short Pen Needle) blood-glucose meter,continuous #1 ea 10/25/22 (Dexcom G7 Fountain Pen Turner) blood-glucose sensor (Dexcom G7 #3 ea 10/25/22 Sensor device) insulin lispro 100 unit/mL 1 sliding scale dose subcut TID 11/27/22 subcutaneous pen (Humalog KwikPen #15 mL (U-100) Insulin) Current Visit Medications: Current Medications Generic Name Dose Route Start Last Admin Trade Name Freq PRN Reason Stop Dose Admin Hyoscyamine Sulfate 0.125 mg 01/17/23 03:10 Hyoscyamine 0.125 Mg Sl/Oral/Chew SL 02/16/23 03:09 DIRECTED PRN Ringer's Solution 1,000 mls @ 80 mls/hr 01/17/23 06:00 IV 01/17/23 23:59 INFUSION [facility] IV Miscellaneous Supplies 1 each 01/17/23 06:00 Iv Access IV 01/17/23 23:59 DIRECTED ADAMARIS Ondansetron HCl 4 mg 01/17/23 03:10 Ondansetron 4 Mg/2 Ml Vial IVP 02/16/23 03:09 Q4H PRN PRN Nausea / Vomiting Sodium Chloride 0 ml 01/17/23 06:00 Normal Saline Flush 10 Ml Syr IV 01/17/23 23:59 PRN PRN Sodium Chloride 0 ml 01/17/23 06:00 Normal Saline 10 Ml Vial IJ 01/17/23 23:59 DIRECTED PRN Sterile Water 0 ml 01/17/23 06:00 Water,Injection,Sterile 10 Ml Vial IJ 01/17/23 23:59 DIRECTED PRN PFSH Active Problems Active Problems: Problem Status Onset Code Hyperlipidemia E78.5 Diabetic retinopathy E11.319 Type 2 diabetes mellitus with diabetic neuropathy, with long-term current use of insulin E11.40, Z79.4 GERD (gastroesophageal reflux disease) K21.9 Screening for malignant neoplasm of colon performed Z12.11 Medical History Medical History Diabetic foot ulcer Hypoglycemic encephalopathy Osteomyelitis of right foot Surgical History Surgical History (Updated 01/17/23 @ 08:31 by Adriana Levy RN) H/O discectomy L4/L5 History of amputation of toe (07/08/20) 2nd & 3rd toes and met heads History of carpal tunnel surgery of left wrist History of hip surgery Left arthroscopic labral debridement, Arthroscopic femoroplasty, Endoscopic iliotibial band release, Endoscopic trochanteric bursectomy, S/P left knee arthroscopy Status post carpal tunnel release Tobacco Smoking/Tobacco Use Status: Never Alcohol Alcohol Intake: current Alcohol intake frequency: holidays/special occasions only Substance Use Substance use: Never Substance use type: does not use Vital Signs and Lab Results Vital Signs Most Recent Vital Signs in EMR: Most Recent Vital Signs Temp Pulse Resp BP Pulse Ox 36.3 C L 90 18 103/82 99 01/17/23 08:10 01/17/23 08:10 01/17/23 08:10 01/17/23 08:10 01/17/23 08:10 Lab Results Blood Type / Crossmatch: No Data to Display Complete Blood Count: No Data to Display Complete Metabolic Panel: No Data to Display Liver Function Panel: No Data to Display Coagulation Panel: No Data to Display Cardiac Panel: No Data to Display Arterial Blood Gas: No Data to Display Venous Blood Gas: No Data to Display Pancreas Panel: No Data to Display Thyroid Panel: No Data to Display Infectious Disease: No Data to Display Blood Cultures: No Data to Display Toxicology Panel: No Data to Display Anesthesia Assessment and Plan Anesthesia History Personal History: PONV Family History: No Family History of Anesthesia Complications Exercise Tolerance Exercise Tolerance: Metabolic Equivalents>4 Pertinent Negatives Pertinent Negatives: No Symptoms of GERD, No Major Cardiovascular Symptoms or Complaints and No Major Pulmonary Symptoms or Complaints Cardiac & Pulmonary Exam Cardiac Exam: Normal S1/S2 Heart Sounds Pulmonary Exam: Clear Bilateral Breath Sounds Implantable Cardiac Device Does patient have a Pacemaker or an ICD?: No Airway Exam Known Difficult Airway: No Mallampati Class: 1 Mouth Opening: Normal (> 3cm) Thyromental Distance: Greater than 3 cm Neck Range of Motion: Full ROM Neck Circumference: Normal Teeth Condition: Normal Dentition ASA Classification ASA Score: ASA 2 Emergency Case?: No NPO Status NPO Status: NPO Clears >2 hours, Solids >8 hours Anesthesia Plan Resuscitation Status: Full Code Anesthesia Technique: General Anesthesia Airway Planned: Natural Airway Monitors Used: Standard Monitors
[2023-01-17 09:00] VITALS: BMI 27.9
[2023-01-17] MEDS: Lactated Ringers 1,000 ML 80 ML IV (09:00)
--- NOTE | 2023-01-17 09:17 | BOWEL_PTH ---
PATIENT: Kuldeep Ham JR LOC: [facility] U#:[id number] AGE/SX: 47/M ROOM: RE01/17/[address]: Alberta Mccarthy : 1975 BED: DIS: 01/17/2023 SPEC #: [id number] RECD: 01/17/23 13:06 STATUS: DILLON RELexy #: [id number] BARB: 01/17/23 09:[address]: Alberta Mccarthy DEPT: Surgical Specimen RECD BY: Roopa Castillo ENTERED: 01/17/23 13:07 SP TYPE: Bowel OTHR DR: Michelle Fernandez, HOWIE Tissues: 1 - BIOPSY BOWEL Procedures: GROSS AND MICRO LEVEL 4 Comments: [id number]
[2023-01-17 09:42] VITALS: BP 91/66; PULSE 87; RESP 16; TEMP 36.2; O2SAT 98
[2023-01-17 10:10] VITALS: BP 108/86; PULSE 91; RESP 16; TEMP 36.2; O2SAT 98
--- NOTE | 2023-01-17 10:34 | W.ANESPOSTOP ---
Postoperative Evaluation Date, Time and Location Date Performed: 01/17/23 Time Performed: 10:34 Patient Location: Day Surgery Unit Vital Signs Most Recent Imported Vital Signs: Most Recent Vital Signs Temp Pulse Resp BP Pulse Ox 36.2 C L 91 H 16 108/86 98 01/17/23 10:10 01/17/23 10:10 01/17/23 10:10 01/17/23 10:10 01/17/23 10:10 Pain Score Most Recent Pain Score: Most Recent Pain Score Pain Level 0 01/17/23 10:10 Assessment Mental Status: Awake (Alert & Oriented to Patient Baseline) Airway and Respiratory Function: Patent airway with normal (patient baseline) respiratory exam Cardiovascular Function: Hemodynamically Stable Hydration Status: Adequately Hydrated Nausea & Vomiting: No Nausea or Vomiting Pain: Pt. Denies Any Pain Peripheral Nerve Block: Patient did not receive a nerve block Postoperative Comments:: Pt. awake, denies SOB/chest pain. Discussed aspiration despite the fact I believe this would be a very low concern, but given the significant laryngospasm, this is in the differential.
== END 2023-01-17 11:13 | disposition home or self-care (01) ==
PROVIDERS: PCP Nurse Practitioner Family; Visit Provider Surgery
PROC: 0DJD8ZZ Inspection of Lower Intestinal Tract, Via Natural or Artificial Opening Endoscopic (ICD-10-PCS; CPT 45378; principal; 2023-01-17 09:00)
DX: Z12.11 Encounter for screening for malignant neoplasm of colon (principal); D12.5 Benign neoplasm of sigmoid colon; K57.30 Diverticulosis of large intestine without perforation or abscess without bleeding; E11.40 Type 2 diabetes mellitus with diabetic neuropathy, unspecified; Z79.4 Long term (current) use of insulin
CPT/HCPCS: 45385; 88305

== ENCOUNTER → 2023-04-09 13:05 | Outpatient (CLI) | payer BC, SELFPAY ==
--- NOTE | 2023-04-09 09:30 | DI.RAD_ITS ---
Exam(s) XR FOOT LT COMPLETE EXAM: XR FOOT LT COMPLETE CLINICAL HISTORY: Pain in left foot, M79.672. TECHNIQUE: 2D digital imaging was performed. Three views. COMPARISON: CR,XR XR FOOT RT COMPLETE from 11/04/2021 FINDINGS: BONES: No acute fracture is present. No bony destructive lesion is seen. JOINTS: No dislocation present. Plantar arch is maintained. No significant degenerative changes. SOFT TISSUE: Vascular calcifications. IMPRESSION: Unremarkable radiographs of the left foot. DATA REPOSITORY: RADIATION DOSE DELIVERED:
--- NOTE | 2023-04-09 09:30 | DI.RAD_ITS ---
Exam(s) XR FOOT RT COMPLETE EXAM: XR FOOT RT COMPLETE CLINICAL HISTORY: Pain in right foot, M79.672. TECHNIQUE: 2D digital imaging was performed. Three views. COMPARISON: CR,XR XR FOOT RT COMPLETE from 11/04/2021 CR XR FOOT LT COMPLETE from 04/09/2023 FINDINGS: BONES: Amputations again noted at the level of the 2nd and 3rd metatarsal heads. The remaining toes are unremarkable. No acute fracture is present. No bony destructive lesion is seen. JOINTS: No dislocation present. Plantar arch is maintained. No significant degenerative changes. SOFT TISSUE: Normal. IMPRESSION: Stable appearance of amputations of the 2nd and 3rd toes. DATA REPOSITORY: RADIATION DOSE DELIVERED:
== END ==
PROVIDERS: PCP Nurse Practitioner Family; Visit Provider Podiatrist
DX: M79.671 Pain in right foot (principal); M79.672 Pain in left foot; Z98.890 Other specified postprocedural states
CPT/HCPCS: 73630

== ENCOUNTER → 2023-06-26 10:28 | Outpatient (CLI) | payer BC, SELFPAY ==
--- NOTE | 2023-06-26 09:25 | DI.RAD_ITS ---
Exam(s) XR FOOT RT COMPLETE EXAM: XR FOOT RT COMPLETE CLINICAL HISTORY: pain in right foot, ulcer rt foot, L97.511. TECHNIQUE: 2D digital imaging was performed. COMPARISON: CR XR FOOT RT COMPLETE from 04/09/2023 FINDINGS: 3 views Again noted is amputation of the 2nd and 3rd toes at the level of the metatarsal necks. The amputati on osseous a ends appear sharp with no evidence of new erosions and there is no gas in the soft tissu es. There is normal mineralization of the proximal aspect of the 2nd and 3rd metatarsals as well as the other metatarsals and phalanges. Other toes and metatarsals. IMPRESSION: Stable appearance. No radiographic evidence of osteomyelitis. DATA REPOSITORY: RADIATION DOSE DELIVERED:
== END ==
PROVIDERS: PCP Nurse Practitioner Family; Visit Provider Podiatrist
DX: L97.511 Non-pressure chronic ulcer of other part of right foot limited to breakdown of skin (principal); Z89.421 Acquired absence of other right toe(s)
CPT/HCPCS: 73630

== ENCOUNTER → 2023-07-14 01:58 | Outpatient (CLI) | payer BC, SELFPAY ==
--- NOTE | 2023-07-14 06:45 | DI.MRI_ITS ---
Exam(s) MR LUMBAR SPINE WO EXAM: MR LUMBAR SPINE WO CLINICAL HISTORY: lumbar pain, hx of lumbar disc herniation s/p discectomy,M54.16,radiculopat. TECHNIQUE: Multiplanar multisequence MRI of the Lumbar spine was performed. COMPARISON: MR MRI - LUMBAR SPINE WO CONTRAST from 03/14/2010 MR MRI - LUMBAR SPINE W/WO CONT from 02/27/2011 FINDINGS: Bones: The last intervertebral disc space is designated the L5/S1 level for the numbering purpose of this examination. The vertebral body heights are well maintained. Alignment is satisfactory. The si gnal characteristics are unremarkable. Cord: The conus tip ends at the L1 level. It is of normal size and signal intensity. T12-L1: No disc herniations or bulges are present. No central spinal canal or neural foraminal stenos is. L1-2: No disc herniations or bulges are present. No central spinal canal or neural foraminal stenosis . L2-3: No disc herniations or bulges are present. No central spinal canal or neural foraminal stenosis . L3-4: There is a mild diffuse disc bulge and degenerative changes of the facets. Minimal narrowing o f the central spinal canal is noted. There is mild narrowing of the neural foramen bilaterally. L4-5: There is a moderate size left paracentral disc herniation. There is left lateral recess stenos is. There is compression of the left L5 nerve root. There is some extension of the disc into the le ft neural foramen causing mild left neural foraminal stenosis. There is mild narrowing of the centra l spinal canal. No significant right neural foraminal stenosis is seen. There is disc desiccation p resent. L5-S1: No disc herniations or bulges are present. No central spinal canal or neural foraminal stenosi s. Soft tissues: The visualized SI joints and sacrum are well maintained. The paraspinal soft tissues ar e unremarkable. IMPRESSION: 1. Left paracentral disc herniation with left lateral recess stenosis at L4-L5. There is compression of the left L5 nerve root. There is also mild narrowing of the central spinal canal and left neural foramen. 2. Degenerative changes at L3-L4 resulting in minimal narrowing of the central spinal canal and neura l foramen bilaterally. DATA REPOSITORY:
== END ==
LOC: DI 01:58
PROVIDERS: PCP Nurse Practitioner Family; Visit Provider Nurse Practitioner Family
DX: M54.16 Radiculopathy, lumbar region (principal); M51.37 Other intervertebral disc degeneration, lumbosacral region
CPT/HCPCS: 72148

== ENCOUNTER 2024-01-08 08:22 | Outpatient (CLI) | payer BC, SELFPAY ==
[2024-01-08 13:48] LABS: ALT 31 U/L (16-63); AST 16 U/L (15-37); Albumin 4.2 g/dL (3.4-5.0); Alkaline Phosphatase 61 U/L (46-116); Anion Gap 7.8 mmol/L (3-11); BUN 15 mg/dL (7-18); CO2 28.2 mmol/L (21.0-32.0); CREATININE 1.2 mg/dL (0.70-1.30); Calcium 9.3 mg/dL (8.5-10.1); Chloride 106 mmol/L (98-107); Estimated GFR 75.53 (mL/min/1.73m2); Glucose 150 mg/dL (74-106); Potassium 4.6 mmol/L (3.5-5.1); Sodium 142 mmol/L (136-145); Total Protein 7.4 g/dL (6.4-8.2)
[2024-01-08 17:34] LABS: Calculated LDL 61 mg/dL (<100); Cholesterol 138 mg/dL (<200); HDL Cholesterol 43 mg/dL (40-60); Triglyceride 172 mg/dL (<150)
[2024-01-09 09:11] LABS: HIV-1/2 Ag & Ab Screen Negative (Negative)
[2024-01-09 09:28] LABS: Hepatitis C Ab w Rflx HCV PCR Negative (Negative)
[2024-01-09 09:52] LABS: HBs Antibody, Quant <3.1 mIU/mL (See Note); Hep B Surface Ab Negative (See Note); Hepatitis B Core Antibody Negative (Negative); Hepatitis B Surface Antigen Negative (Negative)
== END 2024-01-08 08:23 | disposition home or self-care (01) ==
PROVIDERS: PCP Nurse Practitioner Family; Referring Provider Nurse Practitioner Family; Visit Provider Nurse Practitioner Family
DX: Z11.59 Encounter for screening for other viral diseases (principal); E11.40 Type 2 diabetes mellitus with diabetic neuropathy, unspecified; Z79.4 Long term (current) use of insulin; Z11.4 Encounter for screening for human immunodeficiency virus [HIV]
CPT/HCPCS: 36415; 80053; 80061; 86704; 86706; 86803; 87340; 87389